=== PATIENT | male | born 1935 | race African-American/Black ===

== ENCOUNTER 2016-07-19 22:24 | Emergency (ER) | payer MEDICARE ==
[~2016-07-19] VITALS: Ht 175.3 cm; Wt 90.7 kg
[2016-07-19 22:32] VITALS: BP 128/49
[2016-07-19] MEDS ORDERED: ROBAXIN-750750 MG PO (22:36)
[2016-07-19] MEDS ORDERED: Cyclobenzaprine 10mg Tab ORAL ONE (22:45)
[2016-07-19] MEDS ORDERED: Ketorolac 60mg Inj IM ONE (22:45)
[2016-07-20 00:15] VITALS: BP 131/48
--- NOTE | 2016-07-20 03:32 | Emergency Room Report ---
History of Present Illness General Chief Complaint: Pain Source: Patient, EMS Present Illness HPI 81 YO M presents with chronic right sided lower back pain. States has been to 4 other ERs this week - had xrays "and other tests" that were negative. Has been taking naproxen with some improvement in pain. Denies urinary/bowel incontinence, lower extremity weakness, fever/chills. Has had lower back pain "for years." Denies any recent trauma. Allergies: Coded Allergies: PENICILLINS (Verified Allergy, Unknown, 07/19/16) Patient History Past Medical History: other - Chronic sciatica Past Surgical History: none Pertinent Family History: none Social History: Denies: alcohol use, drug use, smoking Immunizations: UTD Reviewed Nursing Documentation: PMH: Agreed, PSxH: Agreed Nursing Documentation-PMH Hx Hypertension: Yes Review of Systems All Other Systems: negative except mentioned in HPI Physical Exam Vital Signs Date Time Temp Pulse Resp B/P Pulse Ox O2 Delivery O2 Flow Rate FiO2 07/19/16 22:20 98.2 82 17 103/61 100 Room Air Sp02 EP Interpretation: reviewed, normal General Appearance: normal inspection, well appearing, no apparent distress, alert, GCS 15, non-toxic Head: normocephalic, atraumatic Eyes: bilateral eye EOMI, bilateral eye PERRL ENT: normal ENT inspection, hearing grossly normal, normal voice Neck: normal inspection, full range of motion, supple, no bony tend Respiratory: normal inspection, lungs clear, normal breath sounds, no respiratory distress, no retraction, no wheezing Cardiovascular #1: regular rate, rhythm, no edema Gastrointestinal: normal inspection, normal bowel sounds, non tender, soft, no guarding, no hernia Genitourinary: no CVA tenderness Musculoskeletal: normal inspection, back normal, normal range of motion, Rossy' s Sign negative, other - + right sided SL raise test Neurologic: normal inspection, alert, oriented x3, responsive, head of physics III-XII nml as tested, motor strength/tone normal, cerebellar normal, normal gait, speech normal Psychiatric: normal inspection, judgement/insight normal, memory normal, mood/ affect normal, no suicidal/homicidal ideation, no delusions Skin: normal inspection, normal color, no rash Medical Decision Making Diagnostic Impression: Primary Impression: Sciatica of right side ER Course 81 YO M with chronic sciatica type pain. Atraumatic. VSS. Afebrile. No urinary complaints. No focal neuro deficits. Low concern for acute cord compression. Positive right sided straight leg test Rx Robaxin to take with his naproxen Also advised PMD followup DC home Last Vital Signs Date Time Temp Pulse Resp B/P Pulse Ox O2 Delivery O2 Flow Rate FiO2 07/20/16 00:15 98.1 59 18 131/48 98 Room Air Status: improved Disposition: HOME, SELF-CARE Condition: Improved Scripts Methocarbamol* (ROBAXIN-750*) 750 Mg Tablet 750 MG PO TID, #30 TAB 0 Refills Prov: GERARDO ZHANG M.D. 07/19/16 Referrals: NOT CHOSEN IPA/,REFERRING (PCP) Patient Instructions: Sciatica, [id number] Additional Instructions: - Take Robaxin with the naproxen you already have at home - Follow up with the doctor who did the previous surgery on your lower back GERARDO ZHANG M.D. Jul 20, 2016 03:32
== END 2016-07-20 00:15 | disposition home or self-care (01) ==
LOC: EDBD 22:24 → EMR 22:37
DX: M54.31 Sciatica, right side (principal); M54.5 Low back pain; Z88.0 Allergy status to penicillin
CPT/HCPCS: 96372; 99283

== ENCOUNTER 2016-09-13 20:31 | Inpatient (IN) | payer MEDICARE, OTHER ==
[~2016-09-13] VITALS: Ht 175.3 cm; Wt 98.9 kg
[~2016-09-13 20:31] MED LIST: ROBAXIN-750750 MG PO
[2016-09-14] MEDS ORDERED: SULINDAC150 MG PO (01:18)
[2016-09-14] MEDS ORDERED: GABAPENTIN300 MG ORAL (01:18)
[2016-09-14] MEDS ORDERED: LISINOPRIL5 MG ORAL (01:18)
[2016-09-14 04:00] VITALS: BP 107/44
[2016-09-14] MEDS: D5 1/2NS 1,000 ML IV SCH ×2 (04:30→13:22)
[2016-09-14 08:59] VITALS: BP 108/52
[2016-09-14 11:31] LABS: BASOPHILS % (AUTO) 0.6 % (0.0-2.0); EOSINOPHILS % (AUTO) 0.3 % (0.0-3.0); LYMPHOCYTES % (AUTO) 14.9 % (20.0-45.0); MEAN CORPUSCULAR HEMOGLOBIN 27.6 PG (27.0-31.0); MEAN CORPUSCULAR HGB CONC 31.3 G/DL (32.0-36.0); MEAN CORPUSCULAR VOLUME 88 FL (80-99); MEAN PLATELET VOLUME 5.8 FL (6.5-10.1); MONOCYTES % (AUTO) 6.4 % (1.0-10.0); NEUTROPHILS % (AUTO) 77.7 % (45.0-75.0); PLATELET COUNT 445 K/UL (150-450); RED BLOOD COUNT 3.94 M/UL (4.70-6.10); WHITE BLOOD COUNT 9.7 K/UL (4.8-10.8)
[2016-09-14 11:46] LABS: ALANINE AMINOTRANSFERASE 15 U/L (3-41); ALBUMIN/GLOBULIN RATIO 0.9 (1.0-2.7); ANION GAP 19 (5-15); ASPARTATE AMINO TRANSFERASE 26 U/L (5-40); CALCIUM 7.9 mg/dL (8.6-10.2); CARBON DIOXIDE 24 mEQ/L (20-30); CHLORIDE 100 mEQ/L (98-107); CREATININE 2.6 mg/dL (0.7-1.2); HEMOLYSIS 3; MAGNESIUM 2.1 mg/dL (1.7-2.5); PHOSPHORUS 4.5 mg/dL (2.5-4.8); POTASSIUM 3.1 mEQ/L (3.4-4.9); SODIUM 143 mEQ/L (135-145)
[2016-09-14 11:58] LABS: TROPONIN I < 0.30 ng/mL (<=0.30)
[2016-09-14 12:58] VITALS: BP 80/49
[2016-09-14] MEDS: Heparin 5000 units/ml inj SUBQ SCH ×2 (13:30→21:23)
--- NOTE | 2016-09-14 14:13 | Diagnostic Imaging Report ---
Indication: Chest Pain Comparison: None A single view chest radiograph was obtained. Findings: No definite infiltrate or pulmonary vascular congestion identified. The heart is enlarged. The aorta is mildly enlarged consistent with atherosclerotic vascular disease. The bones are osteopenic. Impression: No acute disease
[2016-09-14 14:22] VITALS: BP 107/42
--- NOTE | 2016-09-14 15:37 | Diagnostic Imaging Report ---
Indication:Elevated Bun and Creatinine. Technique: Grayscale and duplex Doppler imaging of the kidneys performed. Comparison: None Findings: Urinary bladder is moderately distended. Volume is about 428 cc. There are multiple calcifications in the right kidney likely small nonobstructive stones. There are multiple cysts present within both kidneys. These are of varying size. Both kidneys measure between 11 and 12 cm in length. Impression: Distended urinary bladder. Suspected nonobstructive stones in the right kidney. Multiple small bilateral renal cysts
--- NOTE | 2016-09-14 16:43 | Cardiac Electrophysiology PN ---
Subjective Subjective [id number] Objective Last 24 Hour Vital Signs Date Time Temp Pulse Resp B/P Pulse Ox O2 Delivery O2 Flow Rate FiO2 09/14/16 14:22 65 107/42 09/14/16 12:58 98.0 60 19 80/49 97 Room Air 09/14/16 08:59 98.0 71 19 108/52 98 Room Air 09/14/16 04:00 98.2 71 19 107/44 95 Room Air Intake and Output 09/13/16 09/14/16 19:00 07:00 Intake Total 300 ml Balance 300 ml IV Total 300 ml # Voids 2 # Bowel Movements 3 Laboratory Tests Test 09/14/16 11:10 White Blood Count 9.7 K/UL (4.8-10.8) Red Blood Count 3.94 M/UL (4.70-6.10) L Hemoglobin 10.9 G/DL (14.2-18.0) L Hematocrit 34.7 % (42.0-52.0) L Mean Corpuscular Volume 88 FL (80-99) Mean Corpuscular Hemoglobin 27.6 PG (27.0-31.0) Mean Corpuscular Hemoglobin Concent 31.3 G/DL (32.0-36.0) L Red Cell Distribution Width 14.0 % (11.6-14.8) Platelet Count 445 K/UL (150-450) Mean Platelet Volume 5.8 FL (6.5-10.1) L Neutrophils (%) (Auto) 77.7 % (45.0-75.0) H Lymphocytes (%) (Auto) 14.9 % (20.0-45.0) L Monocytes (%) (Auto) 6.4 % (1.0-10.0) Eosinophils (%) (Auto) 0.3 % (0.0-3.0) Basophils (%) (Auto) 0.6 % (0.0-2.0) Sodium Level 143 mEQ/L (135-145) Potassium Level 3.1 mEQ/L (3.4-4.9) L Chloride Level 100 mEQ/L (98-107) Carbon Dioxide Level 24 mEQ/L (20-30) Anion Gap 19 (5-15) H Blood Urea Nitrogen 46 mg/dL (7-23) H Creatinine 2.6 mg/dL (0.7-1.2) H Estimat Glomerular Filtration Rate mL/min (>60) Glucose Level 92 mg/dL (74-106) Calcium Level 7.9 mg/dL (8.6-10.2) L Phosphorus Level 4.5 mg/dL (2.5-4.8) Magnesium Level 2.1 mg/dL (1.7-2.5) Total Bilirubin < 0.2 mg/dL (0.0-1.2) Aspartate Amino Transf (AST/SGOT) 26 U/L (5-40) Alanine Aminotransferase (ALT/SGPT) 15 U/L (3-41) Alkaline Phosphatase 56 U/L (40-129) Total Creatine Kinase 344 U/L (38-174) H Troponin I < 0.30 ng/mL (<=0.30) Pro-B-Type Natriuretic Peptide 1622 pg/mL (0-450) H Total Protein 6.0 g/dL (6.6-8.7) L Albumin 2.9 g/dL (3.5-5.2) L Globulin 3.1 g/dL Albumin/Globulin Ratio 0.9 (1.0-2.7) L ANNA KOEHLER Sep 14, 2016 16:43
--- NOTE | 2016-09-14 17:26 | Consultation ---
History of Present Illness General Date patient seen: Sep 14, 2016 Chief Complaint: ALOC Referring physician: Dr. Gar Reason for Consultation: Inpatient management Present Illness HPI 81 year old male with hx of HTN, apparently fell from his wheelchair and was unable to get up. He was taken to [facility]. After initial evaluation he was transferred to [facility] for further management. Pt is currently awake, alert and oriented without any complains. He was diagnosed to have acute dvt of right femoral artery. Allergies: Coded Allergies: PENICILLINS (Verified Allergy, Unknown, 07/19/16) Medication History Scheduled Lisinopril (Lisinopril*), 5 MG ORAL DAILY, (Reported) Sulindac (Sulindac), 150 MG PO THREE TIMES A DAY, (Reported) Scheduled PRN Gabapentin* (Gabapentin*), 300 MG ORAL THREE TIMES A DAY PRN for For Pain, ( Reported) Discontinued Medications Methocarbamol* (Robaxin-750*), 750 MG PO TID Discontinued Reason: Therapy completed Patient History Healthcare decision maker izzy Olson Resuscitation status Advanced Directive on File Physical Exam General Appearance: WD/WN Lines, tubes and drains: peripheral, central line HEENT: normocephalic, atraumatic Neck: non-tender, normal alignment Respiratory/Chest: chest wall non-tender, lungs clear Cardiovascular/Chest: normal peripheral pulses, normal rate Last 24 Hour Vital Signs Date Time Temp Pulse Resp B/P Pulse Ox O2 Delivery O2 Flow Rate FiO2 09/14/16 14:22 65 107/42 09/14/16 12:58 98.0 60 19 80/49 97 Room Air 09/14/16 08:59 98.0 71 19 108/52 98 Room Air 09/14/16 04:00 98.2 71 19 107/44 95 Room Air Intake and Output 09/13/16 09/14/16 19:00 07:00 Intake Total 300 ml Balance 300 ml IV Total 300 ml # Voids 2 # Bowel Movements 3 Laboratory Tests Test 09/14/16 11:10 White Blood Count 9.7 K/UL (4.8-10.8) Red Blood Count 3.94 M/UL (4.70-6.10) L Hemoglobin 10.9 G/DL (14.2-18.0) L Hematocrit 34.7 % (42.0-52.0) L Mean Corpuscular Volume 88 FL (80-99) Mean Corpuscular Hemoglobin 27.6 PG (27.0-31.0) Mean Corpuscular Hemoglobin Concent 31.3 G/DL (32.0-36.0) L Red Cell Distribution Width 14.0 % (11.6-14.8) Platelet Count 445 K/UL (150-450) Mean Platelet Volume 5.8 FL (6.5-10.1) L Neutrophils (%) (Auto) 77.7 % (45.0-75.0) H Lymphocytes (%) (Auto) 14.9 % (20.0-45.0) L Monocytes (%) (Auto) 6.4 % (1.0-10.0) Eosinophils (%) (Auto) 0.3 % (0.0-3.0) Basophils (%) (Auto) 0.6 % (0.0-2.0) Sodium Level 143 mEQ/L (135-145) Potassium Level 3.1 mEQ/L (3.4-4.9) L Chloride Level 100 mEQ/L (98-107) Carbon Dioxide Level 24 mEQ/L (20-30) Anion Gap 19 (5-15) H Blood Urea Nitrogen 46 mg/dL (7-23) H Creatinine 2.6 mg/dL (0.7-1.2) H Estimat Glomerular Filtration Rate mL/min (>60) Glucose Level 92 mg/dL (74-106) Calcium Level 7.9 mg/dL (8.6-10.2) L Phosphorus Level 4.5 mg/dL (2.5-4.8) Magnesium Level 2.1 mg/dL (1.7-2.5) Total Bilirubin < 0.2 mg/dL (0.0-1.2) Aspartate Amino Transf (AST/SGOT) 26 U/L (5-40) Alanine Aminotransferase (ALT/SGPT) 15 U/L (3-41) Alkaline Phosphatase 56 U/L (40-129) Total Creatine Kinase 344 U/L (38-174) H Troponin I < 0.30 ng/mL (<=0.30) Pro-B-Type Natriuretic Peptide 1622 pg/mL (0-450) H Total Protein 6.0 g/dL (6.6-8.7) L Albumin 2.9 g/dL (3.5-5.2) L Globulin 3.1 g/dL Albumin/Globulin Ratio 0.9 (1.0-2.7) L Height (Feet): 5 Height (Inches): 9.00 Weight (Pounds): 218 Medications Current Medications Medications (Trade) Dose Ordered Sig/[place] Route PRN Reason Start Time Stop Time Status Last Admin Dose Admin Acetaminophen (Tylenol) 650 mg Q6HR PRN ORAL Mild Pain/Temp > 100.5 09/14/16 09:00 10/14/16 08:59 Dextrose/Sodium Chloride (D5 0.45% NS) 1,000 ml @ 100 mls/hr Q10H IV 09/14/16 04:30 10/14/16 04:29 09/14/16 13:22 Gabapentin (Neurontin) 300 mg THREE TIMES A DAY ORAL 09/14/16 09:00 10/14/16 08:59 09/14/16 12:28 Heparin Sodium (Porcine) (Heparin 5000 units/ml) 5,000 units EVERY 12 HOURS SUBQ 09/14/16 14:00 10/14/16 13:59 09/14/16 13:30 Assessment/Plan Problem List: (1) Renal failure ICD Codes: N19 - Unspecified kidney failure SNOMED: 14736706 (2) DVT (deep venous thrombosis) ICD Codes: I82.409 - Acute embolism and thrombosis of unspecified deep veins of unspecified lower extremity SNOMED: 375139868 (3) Hypokalemia ICD Codes: E87.6 - Hypokalemia SNOMED: 86130029 Assessment/Plan heparin IV/ coumadine renal work up echo pt/ot monitor bp check electrolytes. SONIYA GUPTA Sep 14, 2016 17:26
--- NOTE | 2016-09-14 19:04 | History & Physical ---
History and Physical History & Physicial Dictated for Int Med-Dr Naqvi no. [id number]. LARA EDWARDS Sep 14, 2016 19:04
[2016-09-14 19:05] LABS: INR 1.4 (0.9-1.1); PROTHROMBIN TIME 14.1 SEC (9.30-11.50)
[2016-09-14 19:12] LABS: ALANINE AMINOTRANSFERASE 15 U/L (3-41); ALBUMIN/GLOBULIN RATIO 0.9 (1.0-2.7); ANION GAP 16 (5-15); ASPARTATE AMINO TRANSFERASE 25 U/L (5-40); CARBON DIOXIDE 25 mEQ/L (20-30); CHLORIDE 99 mEQ/L (98-107); CREATININE 2.5 mg/dL (0.7-1.2); LACTATE DEHYDROGENASE 323 U/L (135-230); POTASSIUM 3.8 mEQ/L (3.4-4.9); SODIUM 140 mEQ/L (135-145); TOTAL PROTEIN 5.5 g/dL (6.6-8.7); URIC ACID 13.4 mg/dL (3.0-7.5)
[2016-09-14 19:18] LABS: FREE T3 1.7 pg/mL (2.3-4.2)
[2016-09-14 19:38] LABS: HEMOLYSIS 7; IRON 34 ug/dL (59-158); TOTAL IRON BINDING CAPACITY 134 ug/dL (250-400)
[2016-09-14 20:24] LABS: RETICULOCYTE COUNT 0.4 % (0.0-2.0)
[2016-09-14 21:50] LABS: BASOPHILS % (MANUAL) 1 % (0-2); LYMPHOCYTES % (MANUAL) 19 % (20-45); NEUTROPHILS % (MANUAL) 74 % (45-75); TOTAL CELLS COUNTED 100
[2016-09-14 21:51] LABS: ANISOCYTOSIS 1+; BAND NEUTROPHILS % (MANUAL) 0 % (0-8); EOSINOPHILS % (MANUAL) 0 % (0-3); PLATELET ESTIMATE ADEQUATE
[2016-09-14 21:52] LABS: PATH BLOOD SMEAR/OMC SENT TO PATHOLOGIST; PLATELET MORPHOLOGY NORMAL; POLYCHROMASIA 1+
--- NOTE | 2016-09-14 22:20 | Consultation ---
DATE OF CONSULTATION: 09/14/2016 CARDIOLOGY CONSULTATION: REFERRING PHYSICIAN: Esa Naqvi M.D. REASON FOR CONSULTATION: Hypertension and syncope. HISTORY OF PRESENT ILLNESS: The patient is an 81-year-old ____ who was brought to the emergency room for generalized weakness after a fall. The patient apparently fell in the bedroom around 11 o'clock last night, but not sure whether he lost consciousness or not. Whatever he hit his head against the wall. The patient lives alone. The patient was brought to the emergency room at [facility] when the blood pressure was 101/46 and pulse was 60. The patient was found to be in acute renal failure. He was then transferred to [facility] for hydration and resolution of acute renal failure. PAST MEDICAL HISTORY: Hypertension. SOCIAL HISTORY: He lives alone at home. Does not smoke or drink alcohol. FAMILY HISTORY: Noncontributory. REVIEW OF SYSTEMS: Negative other than what is mentioned in history of present illness. PHYSICAL EXAMINATION: VITAL SIGNS: Blood pressure is 107/42 initially was 80/49, pulse 65, respirations 18, and temperature 98 degrees. NECK: Shows no JVD. LUNGS: Clear. CARDIOVASCULAR: Shows regular S1 and S2 with no gallop or murmur. ABDOMEN: Soft. EXTREMITIES: A 1+ pitting edema. LABORATORY DATA: White count of 9.7, hemoglobin 10.9, hematocrit 34.7, and platelet count is 445,000. Sodium 142, potassium 3.1, BUN 42, creatinine 2.0, and glucose of 92. Troponins negative. BNP 6022. CK 344. ASSESSMENT AND PLAN: 1. Status post fall versus syncope. The first troponin is negative. We will completely rule out myocardial infarction protocol. We will get an echocardiogram to evaluate for ejection fraction and wall motion abnormality. EKG will also be obtained. 2. Acute renal failure. Continue dehydration. The patient is dehydrated. 3. Elevated CPK due to fall. The patient's creatinine was 4.13 at [place], is improving. 4. Hypokalemia, which is already replaced. Thank very much, Dr. Naqiv, for allowing me to participate in the care of this patient. Please do not hesitate to contact for any questions regarding my evaluation. Ishan Goode M.D. DR: Roque JOB#: [id number] CC:
[2016-09-14] MEDS ORDERED: Heparin 25,000u/D5W 500ml 500 ML IV SCH (23:00)
--- NOTE | 2016-09-14 23:30 | History and Physical Report ---
DATE OF ADMISSION: 09/13/2016 CHIEF COMPLAINT: The patient is an 81-year-old male presents with complaint of generalized weakness and fall injury. HISTORY OF PRESENT ILLNESS: The patient lives alone. According to the patient's daughter, the patient fell from his wheelchair last evening. The patient was found earlier this morning. The patient presented to [facility] emergency room. The patient was found to have renal failure. The patient is transferred to [facility] secondary to insurance purposes. The patient was admitted for generalized weakness and acute renal failure. REVIEW OF SYSTEMS: Constitutional: The patient denies weight loss or weight gain. The patient denies fevers or chills. Heent: The patient denies ear or throat pain. Cardiovascular: The patient denies palpitations or chest pain. Chest: The patient denies wheeze or shortness of breath. Abdominal: The patient denies nausea, vomiting, diarrhea, or constipation. Genitourinary: The patient denies dysuria or increased frequency of urination. Neuromuscular: The patient complaints of generalized weakness as above. The patient denies seizures. PAST MEDICAL HISTORY: Significant for: 1. Hypertension. 2. Peripheral neuropathy. PAST SURGICAL HISTORY: The patient denies. CURRENT MEDICATIONS: 1. Lisinopril 5 mg one tablet p.o. daily. 2. Gabapentin 300 mg one tablet p.o. three times daily. 3. Sulindac 150 mg one tablet p.o. three times daily. ALLERGIES: Penicillin. SOCIAL HISTORY: The patient lives alone. The patient is . The patient has two adult children. The patient denies tobacco or alcohol use. PHYSICAL EXAMINATION: VITAL SIGNS: Temperature 98.2, respirations 19, pulse 71, and blood pressure 107/44. GENERAL: The patient is well-developed and well-nourished male, in no apparent distress. HEENT: Eyes, pupils are equal and responsive to light and accommodation. Extraocular movements are intact. NECK: Supple without lymphadenopathy. CHEST: Lungs are clear to auscultation bilaterally without wheezes or rales. CARDIOVASCULAR: Regular rhythm and rate. S1 and S2 are normal without murmurs, rubs, or gallops. ABDOMEN: Soft, nontender, and nondistended. Positive bowel sounds. No hepatosplenomegaly. Currently, no rebound or guarding. EXTREMITIES: Negative for clubbing, cyanosis, or edema. RECTAL/GENITAL: Refused. NEUROLOGICAL: Cranial nerves II through XII are grossly intact without focal deficits. Motor strength is 5/5 bilaterally. Deep tendon reflexes are 2+ plantar. LABORATORY AND DIAGNOSTIC STUDIES: WBC 9.7, hemoglobin 10.9, hematocrit 34.7, and platelets 445,000. Sodium 143, potassium decreased to 3.1, chloride 100, CO2 24, BUN elevated to 46, creatinine elevated to 2.6, and glucose 92. BNP elevated at 1622. Troponin negative less than 0.3. A chest x-ray revealed no acute disease. The renal ultrasound is pending. ASSESSMENT: This is an 81-year-old male with: 1. Generalized weakness. 2. Fall injury. 3. Renal failure. 4. Hypertension. 5. Peripheral neuropathy. 6. Hypokalemia. TREATMENT: 1. Generalized weakness. A physical therapy consultation has been obtained. Generalized weakness may be secondary to renal failure. We will follow recommendation of physical therapy. 2. Hypertension. Continue lisinopril as above. 3. Peripheral neuropathy. Continue gabapentin as above. 4. Hypokalemia. The patient is currently receiving potassium supplementation. 5. Renal failure. Nephrology consultation is pending. A renal ultrasound is pending. Amarjit Gar M.D. DR: DAFNE JOB#: [id number] CC:
[2016-09-14 23:51] LABS: BASOPHILS % (AUTO) 0.8 % (0.0-2.0); EOSINOPHILS % (AUTO) 0.3 % (0.0-3.0); LYMPHOCYTES % (AUTO) 14.7 % (20.0-45.0); MEAN CORPUSCULAR HGB CONC 31.4 G/DL (32.0-36.0); MEAN CORPUSCULAR VOLUME 89 FL (80-99); MEAN PLATELET VOLUME 5.6 FL (6.5-10.1); NEUTROPHILS % (AUTO) 75.2 % (45.0-75.0); PLATELET COUNT 343 K/UL (150-450); RED BLOOD COUNT 3.35 M/UL (4.70-6.10); WHITE BLOOD COUNT 12.4 K/UL (4.8-10.8)
[2016-09-15] VITALS: BP 93/36
[2016-09-15] MEDS: D5 1/2NS 1,000 ML IV SCH ×3 (00:30→21:34)
[2016-09-15 04:00] VITALS: BP 104/45
[2016-09-15 07:42] LABS: BASOPHILS % (AUTO) 0.4 % (0.0-2.0); EOSINOPHILS % (AUTO) 0.7 % (0.0-3.0); LYMPHOCYTES % (AUTO) 16.7 % (20.0-45.0); MEAN CORPUSCULAR HEMOGLOBIN 28.1 PG (27.0-31.0); MEAN CORPUSCULAR HGB CONC 32.2 G/DL (32.0-36.0); MEAN CORPUSCULAR VOLUME 87 FL (80-99); MONOCYTES % (AUTO) 9.1 % (1.0-10.0); NEUTROPHILS % (AUTO) 73.1 % (45.0-75.0); PLATELET COUNT 462 K/UL (150-450); RED BLOOD COUNT 3.84 M/UL (4.70-6.10); RED CELL DISTRIBUTION WIDTH 14.3 % (11.6-14.8); WHITE BLOOD COUNT 13.8 K/UL (4.8-10.8)
[2016-09-15 07:51] LABS: ANION GAP 17 (5-15); CALCIUM 8.1 mg/dL (8.6-10.2); CARBON DIOXIDE 24 mEQ/L (20-30); CHLORIDE 101 mEQ/L (98-107); CREATININE 2.1 mg/dL (0.7-1.2); HEMOLYSIS 2; MAGNESIUM 1.9 mg/dL (1.7-2.5); PHOSPHORUS 3.2 mg/dL (2.5-4.8); POTASSIUM 3.9 mEQ/L (3.4-4.9); SODIUM 142 mEQ/L (135-145)
[2016-09-15 07:52] LABS: TROPONIN I < 0.30 ng/mL (<=0.30)
[2016-09-15 08:08] LABS: CORTISOL LC 18.9 ug/dL (.)
[2016-09-15 08:18] LABS: INR 1.3 (0.9-1.1); PROTHROMBIN TIME 13.5 SEC (9.30-11.50)
[2016-09-15 08:23] LABS: PARTIAL THROMBOPLASTIN TIME > 150 SEC (23-33)
[2016-09-15 08:35] VITALS: BP 94/59
[2016-09-15] MEDS ORDERED: Heparin 25,000u/D5W 500ml 500 ML IV SCH ×2 (09:30)
[2016-09-15] MEDS: Heparin 25,000u/D5W 500ml 500 ML IV SCH ×2 (11:18→18:07)
[2016-09-15 11:34] VITALS: BP 124/50
--- NOTE | 2016-09-15 12:11 | General Progress Note ---
Progress Note Progress Note [id number] full note dictated TATUM ROBERTS Sep 15, 2016 12:11
--- NOTE | 2016-09-15 13:00 | Cardiology Report ---
APPROVED REPORT EXAM: Two-dimensional and M-mode echocardiogram with Doppler and color Doppler. INDICATION Left Ventricular Function M-Mode DIMENSIONS IVSd1.5 (0.7-1.1cm)Left Atrium (MM)3.3 (1.6-4.0cm) LVDd5.5 (3.5-5.6cm)Aortic Root3.2 (2.0-3.7cm) PWd1.0 (0.7-1.1cm)Aortic Cusp Exc.1.5 (1.5-2.0cm) LVDs4.6 (2.5-4.0cm) PWs1.1 cm Technically difficult and limited study due to poor apical windows. Apical views obtained from subcostal. Study quality precludes accurate assessment of regional wall motion. Normal left ventricular chamber size, systolic function and wall motion to extent visualized. Left ventricular ejection fraction estimated to be 60 %. Mild left ventricular hypertrophy. No evidence of pericardial fat or effusion. All other cardiac chamber sizes are within normal limits. Mild focal aortic valve sclerosis with adequate cusp excursion. Mildly thickened mitral valve leaflets with normal excursion. Mild mitral annulus and aortic root calcification. Pulmonic valve not well visualized. Normal tricuspid valve structure. IVC at normal size with physiologic collapse. A color flow and spectral Doppler study was performed and revealed: No aortic regurgitation. Mild mitral regurgitation. Mitral diastolic velocities suggest reduced left ventricular relaxation (Grade I). Mild tricuspid regurgitation. Tricuspid systolic velocities suggests peak right ventricular systolic pressure of 24 mmHg. No pulmonic regurgitation present.
--- NOTE | 2016-09-15 13:41 | Cardiology Report ---
APPROVED REPORT EKG Measurement Heart [id number] [place] [id number] Normal sinus rhythm Normal ECG
--- NOTE | 2016-09-15 14:47 | Cardiac Electrophysiology PN ---
Assessment/Plan Status Narrative Technically difficult and limited study due to poor apical windows. Apical views obtained from subcostal. Study quality precludes accurate assessment of regional wall motion. Normal left ventricular chamber size, systolic function and wall motion to extent visualized. Left ventricular ejection fraction estimated to be 60 %. Mild left ventricular hypertrophy. No evidence of pericardial fat or effusion. All other cardiac chamber sizes are within normal limits. Mild focal aortic valve sclerosis with adequate cusp excursion. Mildly thickened mitral valve leaflets with normal excursion. Mild mitral annulus and aortic root calcification. Pulmonic valve not well visualized. Normal tricuspid valve structure. IVC at normal size with physiologic collapse. A color flow and spectral Doppler study was performed and revealed: No aortic regurgitation. Mild mitral regurgitation. Mitral diastolic velocities suggest reduced left ventricular relaxation (Grade I ). Mild tricuspid regurgitation. Tricuspid systolic velocities suggests peak right ventricular systolic pressure of 24 mmHg. No pulmonic regurgitation present. Assessment/Plan 1. Status post fall versus syncope. The first troponin is negative. Ruled out for myocardial infarction. Echocardiogram showed Nl EF. Likely due to dehydration. 2. Acute renal failure. Continue dehydration. Better now.The patient's creatinine was 4.13 at [place], is improving. 3. Elevated CPK due to fall. 4. Hypokalemia, which is already replaced. BURTON RN Subjective Subjective More alert. Transferred to telemetry. No chest pain or SOB Objective Last 24 Hour Vital Signs Date Time Temp Pulse Resp B/P Pulse Ox O2 Delivery O2 Flow Rate FiO2 09/15/16 12:00 71 09/15/16 11:34 97.7 68 20 124/50 98 Room Air 09/15/16 08:35 97.7 70 20 94/59 100 Nasal Cannula 2.0 09/15/16 04:00 96.4 67 20 104/45 99 Room Air 09/15/16 00:00 96.4 67 20 93/36 97 Room Air Intake and Output 09/14/16 09/15/16 19:00 07:00 Intake Total 940 ml 311.196 ml Output Total 450 ml Balance 940 ml -138.804 ml Intake Oral 240 ml 240 ml IV Total 700 ml 71.196 ml Output Urine Total 450 ml # Voids 1 4 Laboratory Tests Test 09/14/16 18:15 09/14/16 23:30 09/15/16 07:15 Erythrocyte Sedimentation Rate 47 MM/HR (0-20) H Reticulocyte Count 0.4 % (0.0-2.0) Prothrombin Time 14.1 SEC (9.30-11.50) H 13.5 SEC (9.30-11.50) H Prothromb Time International Ratio 1.4 (0.9-1.1) H 1.3 (0.9-1.1) H Activated Partial Thromboplast Time 30 SEC (23-33) 30 SEC (23-33) > 150 SEC (23-33) *H Urine Color Pending Urine Appearance Pending Urine pH Pending Urine Specific [place] Pending Urine Protein Pending Urine Glucose (UA) Pending Urine Ketones Pending Urine Occult Blood Pending Urine Nitrite Pending Urine Bilirubin Pending Urine Urobilinogen Pending Urine Leukocyte Esterase Pending Urine RBC Pending Urine WBC Pending Urine Squamous Epithelial Cells Pending Urine Bacteria Pending Urine Eosinophils Pending Sodium Level 140 mEQ/L (135-145) 142 mEQ/L (135-145) Potassium Level 3.8 mEQ/L (3.4-4.9) 3.9 mEQ/L (3.4-4.9) Chloride Level 99 mEQ/L (98-107) 101 mEQ/L (98-107) Carbon Dioxide Level 25 mEQ/L (20-30) 24 mEQ/L (20-30) Anion Gap 16 (5-15) H 17 (5-15) H Blood Urea Nitrogen 44 mg/dL (7-23) H 35 mg/dL (7-23) H Creatinine 2.5 mg/dL (0.7-1.2) H 2.1 mg/dL (0.7-1.2) H Estimat Glomerular Filtration Rate mL/min (>60) mL/min (>60) Glucose Level 137 mg/dL (74-106) H 112 mg/dL (74-106) H Plasma/Serum Osmolality Pending Uric Acid 13.4 mg/dL (3.0-7.5) H Calcium Level 8.0 mg/dL (8.6-10.2) L 8.1 mg/dL (8.6-10.2) L Iron Level 34 ug/dL (59-158) L Total Iron Binding Capacity 134 ug/dL (250-400) L Percent Iron Saturation 25 % (15-50) Unsaturated Iron Binding 100 ug/dL (112-346) L Total Bilirubin < 0.2 mg/dL (0.0-1.2) Aspartate Amino Transf (AST/SGOT) 25 U/L (5-40) Alanine Aminotransferase (ALT/SGPT) 15 U/L (3-41) Alkaline Phosphatase 58 U/L (40-129) Lactate Dehydrogenase 323 U/L (135-230) H Total Creatine Kinase 286 U/L (38-174) H Total Protein 5.5 g/dL (6.6-8.7) L Albumin 2.7 g/dL (3.5-5.2) L Globulin 2.8 g/dL Albumin/Globulin Ratio 0.9 (1.0-2.7) L Carcinoembryonic Antigen 2.7 ng/mL Vitamin B12 Level 824 pg/mL (211-946) Folate 3.0 ng/mL (>3.0) L Thyroid Stimulating Hormone (TSH) 1.320 uIU/mL (0.300-4.500) 3.420 uIU/mL (0.300-4.500) Free Triiodothyronine 1.7 pg/mL (2.3-4.2) L Cortisol 18.9 ug/dL (.) White Blood Count 12.4 K/UL (4.8-10.8) H 13.8 K/UL (4.8-10.8) H Red Blood Count 3.35 M/UL (4.70-6.10) L 3.84 M/UL (4.70-6.10) L Hemoglobin 9.4 G/DL (14.2-18.0) L 10.8 G/DL (14.2-18.0) L Hematocrit 29.8 % (42.0-52.0) L 33.5 % (42.0-52.0) L Mean Corpuscular Volume 89 FL (80-99) 87 FL (80-99) Mean Corpuscular Hemoglobin 28.0 PG (27.0-31.0) 28.1 PG (27.0-31.0) Mean Corpuscular Hemoglobin Concent 31.4 G/DL (32.0-36.0) L 32.2 G/DL (32.0-36.0) Red Cell Distribution Width 14.0 % (11.6-14.8) 14.3 % (11.6-14.8) Platelet Count 343 K/UL (150-450) 462 K/UL (150-450) H Mean Platelet Volume 5.6 FL (6.5-10.1) L 6.0 FL (6.5-10.1) L Neutrophils (%) (Auto) 75.2 % (45.0-75.0) H 73.1 % (45.0-75.0) Lymphocytes (%) (Auto) 14.7 % (20.0-45.0) L 16.7 % (20.0-45.0) L Monocytes (%) (Auto) 9.0 % (1.0-10.0) 9.1 % (1.0-10.0) Eosinophils (%) (Auto) 0.3 % (0.0-3.0) 0.7 % (0.0-3.0) Basophils (%) (Auto) 0.8 % (0.0-2.0) 0.4 % (0.0-2.0) Phosphorus Level 3.2 mg/dL (2.5-4.8) Magnesium Level 1.9 mg/dL (1.7-2.5) Troponin I < 0.30 ng/mL (<=0.30) Pro-B-Type Natriuretic Peptide 1772 pg/mL (0-450) H Free Thyroxine 0.99 ng/dL (0.86-1.85) Objective NECK: Shows no JVD. LUNGS: Clear. CARDIOVASCULAR: Shows regular S1 and S2 with no gallop or murmur. ABDOMEN: Soft. EXTREMITIES: A 1+ pitting edema. ANNA KOEHLER Sep 15, 2016 14:47
--- NOTE | 2016-09-15 15:01 | Pulmonology Progress Note ---
Assessment/Plan Problems: (1) Renal failure (2) DVT (deep venous thrombosis) (3) Acute encephalopathy Assessment/Plan continue heparin pt/ot renal w/u in progress bun/ creatinine decreasing Subjective ROS Limited/Unobtainable: No Interval Events: no new complains Allergies: Coded Allergies: PENICILLINS (Verified Allergy, Unknown, 07/19/16) Objective Last 24 Hour Vital Signs Date Time Temp Pulse Resp B/P Pulse Ox O2 Delivery O2 Flow Rate FiO2 09/15/16 12:00 71 09/15/16 11:34 97.7 68 20 124/50 98 Room Air 09/15/16 08:35 97.7 70 20 94/59 100 Nasal Cannula 2.0 09/15/16 04:00 96.4 67 20 104/45 99 Room Air 09/15/16 00:00 96.4 67 20 93/36 97 Room Air Intake and Output 09/14/16 09/15/16 19:00 07:00 Intake Total 940 ml 311.196 ml Output Total 450 ml Balance 940 ml -138.804 ml Intake Oral 240 ml 240 ml IV Total 700 ml 71.196 ml Output Urine Total 450 ml # Voids 1 4 General Appearance: WD/WN HEENT: normocephalic, atraumatic Respiratory/Chest: chest wall non-tender, lungs clear Cardiovascular: normal peripheral pulses, normal rate Abdomen: normal bowel sounds, soft, non tender, no scars Extremities: other - edema Laboratory Tests 09/14/16 18:15: Erythrocyte Sedimentation Rate 47H, Reticulocyte Count 0.4, Prothrombin Time 14.1H, Prothromb Time International Ratio 1.4H, Activated Partial Thromboplast Time 30, Urine Color [Pending], Urine Appearance [Pending], Urine pH [Pending], Urine Specific [place] [Pending], Urine Protein [Pending], Urine Glucose (UA) [ Pending], Urine Ketones [Pending], Urine Occult Blood [Pending], Urine Nitrite [ Pending], Urine Bilirubin [Pending], Urine Urobilinogen [Pending], Urine Leukocyte Esterase [Pending], Urine RBC [Pending], Urine WBC [Pending], Urine Squamous Epithelial Cells [Pending], Urine Bacteria [Pending], Urine Eosinophils [Pending], Sodium Level 140, Potassium Level 3.8, Chloride Level 99 , Carbon Dioxide Level 25, Anion Gap 16H, Blood Urea Nitrogen 44H, Creatinine 2.5H, Estimat Glomerular Filtration Rate , Glucose Level 137H, Plasma/Serum Osmolality [Pending], Uric Acid 13.4H, Calcium Level 8.0L, Iron Level 34L, Total Iron Binding Capacity 134L, Percent Iron Saturation 25, Unsaturated Iron Binding 100L, Total Bilirubin < 0.2, Aspartate Amino Transf (AST/SGOT) 25, Alanine Aminotransferase (ALT/SGPT) 15, Alkaline Phosphatase 58, Lactate Dehydrogenase 323H, Total Creatine Kinase 286H, Total Protein 5.5L, Albumin 2.7L , Globulin 2.8, Albumin/Globulin Ratio 0.9L, Carcinoembryonic Antigen 2.7, Vitamin B12 Level 824, Folate 3.0L, Thyroid Stimulating Hormone (TSH) 1.320, Free Triiodothyronine 1.7L, Cortisol 18.9 09/14/16 23:30: Activated Partial Thromboplast Time 30, White Blood Count 12.4H, Red Blood Count 3.35L, Hemoglobin 9.4L, Hematocrit 29.8L, Mean Corpuscular Volume 89, Mean Corpuscular Hemoglobin 28.0, Mean Corpuscular Hemoglobin Concent 31.4L, Red Cell Distribution Width 14.0, Platelet Count 343, Mean Platelet Volume 5.6L , Neutrophils (%) (Auto) 75.2H, Lymphocytes (%) (Auto) 14.7L, Monocytes (%) ( Auto) 9.0, Eosinophils (%) (Auto) 0.3, Basophils (%) (Auto) 0.8 09/15/16 07:15: Prothrombin Time 13.5H, Prothromb Time International Ratio 1.3H, Activated Partial Thromboplast Time > 150*H, Sodium Level 142, Potassium Level 3.9, Chloride Level 101, Carbon Dioxide Level 24, Anion Gap 17H, Blood Urea Nitrogen 35H, Creatinine 2.1H, Estimat Glomerular Filtration Rate , Glucose Level 112H, Calcium Level 8.1L, Thyroid Stimulating Hormone (TSH) 3.420, White Blood Count 13.8H, Red Blood Count 3.84L, Hemoglobin 10.8L, Hematocrit 33.5L, Mean Corpuscular Volume 87, Mean Corpuscular Hemoglobin 28.1, Mean Corpuscular Hemoglobin Concent 32.2, Red Cell Distribution Width 14.3, Platelet Count 462H, Mean Platelet Volume 6.0L, Neutrophils (%) (Auto) 73.1, Lymphocytes (%) (Auto) 16.7L, Monocytes (%) (Auto) 9.1, Eosinophils (%) (Auto) 0.7, Basophils (%) (Auto ) 0.4, Phosphorus Level 3.2, Magnesium Level 1.9, Troponin I < 0.30, Pro-B-Type Natriuretic Peptide 1772H, Free Thyroxine 0.99 Current Medications Medications (Trade) Dose Ordered Sig/[place] Route PRN Reason Start Time Stop Time Status Last Admin Dose Admin Acetaminophen (Tylenol) 650 mg Q6HR PRN ORAL Mild Pain/Temp > 100.5 09/15/16 12:00 10/15/16 11:59 Dextrose/Sodium Chloride 1,000 ml @ 100 mls/hr Q10H IV 09/15/16 11:00 10/15/16 10:59 09/15/16 11:15 Gabapentin (Neurontin) 300 mg THREE TIMES A DAY ORAL 09/15/16 13:00 10/15/16 12:59 09/15/16 12:26 Heparin Sodium/ Dextrose (Heparin) 500 ml @ 27.687 mls/ hr adjust per protocol IV 09/15/16 10:30 10/15/16 10:29 09/15/16 11:18 Warfarin Sodium (Coumadin per pharmacy) 1 ea DAILY PRN MISC Per rx protocol 09/15/16 14:30 10/15/16 14:29 SONIYA RAMOS Sep 15, 2016 15:01
[2016-09-15 16:00] VITALS: BP 88/41
[2016-09-15] MEDS ORDERED: Warfarin Sodium 2.5mg ORAL SCH (17:00)
--- NOTE | 2016-09-15 17:18 | Internal Med Progress Note ---
Subjective Date of Service: Sep 15, 2016 Physician Name Lara Edwards Attending Physician Esa Naqvi MD Current Medications Medications (Trade) Dose Ordered Sig/[place] Route PRN Reason Start Time Stop Time Status Last Admin Dose Admin Acetaminophen (Tylenol) 650 mg Q6HR PRN ORAL Mild Pain/Temp > 100.5 09/15/16 12:00 10/15/16 11:59 Dextrose/Sodium Chloride 1,000 ml @ 100 mls/hr Q10H IV 09/15/16 11:00 10/15/16 10:59 09/15/16 11:15 Gabapentin (Neurontin) 300 mg THREE TIMES A DAY ORAL 09/15/16 13:00 10/15/16 12:59 09/15/16 12:26 Heparin Sodium/ Dextrose (Heparin) 500 ml @ 27.687 mls/ hr adjust per protocol IV 09/15/16 10:30 10/15/16 10:29 09/15/16 11:18 Warfarin Sodium (Coumadin per pharmacy) 1 ea DAILY PRN MISC Per rx protocol 09/15/16 14:30 10/15/16 14:29 Allergies: Coded Allergies: PENICILLINS (Verified Allergy, Unknown, 07/19/16) ROS Limited/Unobtainable: No Constitutional: Reports: no symptoms HEENT: Reports: no symptoms Cardiovascular: Reports: no symptoms Respiratory: Reports: no symptoms Gastrointestinal/Abdominal: Reports: no symptoms Genitourinary: Reports: no symptoms Neurologic/Psychiatric: Reports: weakness Subjective 81 YO M admitted with gen weakness and fall injury/syncope. Cover for Int Sanjay- Dr Naqvi. Objective Last Vital Signs Date Time Temp Pulse Resp B/P Pulse Ox O2 Delivery O2 Flow Rate FiO2 09/15/16 16:00 97.7 70 20 88/41 96 Room Air 09/15/16 08:35 2.0 General Appearance: WD/WN, no apparent distress, alert EENT: PERRL/EOMI, normal ENT inspection, TMs normal Neck: non-tender, normal alignment, supple Cardiovascular: normal peripheral pulses, normal rate, regular rhythm, no gallop/murmur, no JVD Respiratory/Chest: chest wall non-tender, lungs clear, normal breath sounds, no respiratory distress, no accessory muscle use Abdomen: normal bowel sounds, non tender, soft, no organomegaly, no mass Extremities: normal range of motion Neurologic: chronometer repairer II-XII grossly normal, no motor/sensory deficits Skin: normal pigmentation, warm/dry Laboratory Tests Test 09/14/16 18:15 09/14/16 23:30 09/15/16 07:15 09/15/16 15:55 Erythrocyte Sedimentation Rate 47 MM/HR (0-20) H Reticulocyte Count 0.4 % (0.0-2.0) Prothrombin Time 14.1 SEC (9.30-11.50) H 13.5 SEC (9.30-11.50) H Prothromb Time International Ratio 1.4 (0.9-1.1) H 1.3 (0.9-1.1) H Activated Partial Thromboplast Time 30 SEC (23-33) 30 SEC (23-33) > 150 SEC (23-33) *H Pending Urine Color Pending Urine Appearance Pending Urine pH Pending Urine Specific [place] Pending Urine Protein Pending Urine Glucose (UA) Pending Urine Ketones Pending Urine Occult Blood Pending Urine Nitrite Pending Urine Bilirubin Pending Urine Urobilinogen Pending Urine Leukocyte Esterase Pending Urine RBC Pending Urine WBC Pending Urine Squamous Epithelial Cells Pending Urine Bacteria Pending Urine Eosinophils Pending Sodium Level 140 mEQ/L (135-145) 142 mEQ/L (135-145) Potassium Level 3.8 mEQ/L (3.4-4.9) 3.9 mEQ/L (3.4-4.9) Chloride Level 99 mEQ/L (98-107) 101 mEQ/L (98-107) Carbon Dioxide Level 25 mEQ/L (20-30) 24 mEQ/L (20-30) Anion Gap 16 (5-15) H 17 (5-15) H Blood Urea Nitrogen 44 mg/dL (7-23) H 35 mg/dL (7-23) H Creatinine 2.5 mg/dL (0.7-1.2) H 2.1 mg/dL (0.7-1.2) H Estimat Glomerular Filtration Rate mL/min (>60) mL/min (>60) Glucose Level 137 mg/dL (74-106) H 112 mg/dL (74-106) H Plasma/Serum Osmolality Pending Uric Acid 13.4 mg/dL (3.0-7.5) H Calcium Level 8.0 mg/dL (8.6-10.2) L 8.1 mg/dL (8.6-10.2) L Iron Level 34 ug/dL (59-158) L Total Iron Binding Capacity 134 ug/dL (250-400) L Percent Iron Saturation 25 % (15-50) Unsaturated Iron Binding 100 ug/dL (112-346) L Total Bilirubin < 0.2 mg/dL (0.0-1.2) Aspartate Amino Transf (AST/SGOT) 25 U/L (5-40) Alanine Aminotransferase (ALT/SGPT) 15 U/L (3-41) Alkaline Phosphatase 58 U/L (40-129) Lactate Dehydrogenase 323 U/L (135-230) H Total Creatine Kinase 286 U/L (38-174) H Total Protein 5.5 g/dL (6.6-8.7) L Albumin 2.7 g/dL (3.5-5.2) L Globulin 2.8 g/dL Albumin/Globulin Ratio 0.9 (1.0-2.7) L Carcinoembryonic Antigen 2.7 ng/mL Vitamin B12 Level 824 pg/mL (211-946) Folate 3.0 ng/mL (>3.0) L Thyroid Stimulating Hormone (TSH) 1.320 uIU/mL (0.300-4.500) 3.420 uIU/mL (0.300-4.500) Free Triiodothyronine 1.7 pg/mL (2.3-4.2) L Cortisol 18.9 ug/dL (.) White Blood Count 12.4 K/UL (4.8-10.8) H 13.8 K/UL (4.8-10.8) H Red Blood Count 3.35 M/UL (4.70-6.10) L 3.84 M/UL (4.70-6.10) L Hemoglobin 9.4 G/DL (14.2-18.0) L 10.8 G/DL (14.2-18.0) L Hematocrit 29.8 % (42.0-52.0) L 33.5 % (42.0-52.0) L Mean Corpuscular Volume 89 FL (80-99) 87 FL (80-99) Mean Corpuscular Hemoglobin 28.0 PG (27.0-31.0) 28.1 PG (27.0-31.0) Mean Corpuscular Hemoglobin Concent 31.4 G/DL (32.0-36.0) L 32.2 G/DL (32.0-36.0) Red Cell Distribution Width 14.0 % (11.6-14.8) 14.3 % (11.6-14.8) Platelet Count 343 K/UL (150-450) 462 K/UL (150-450) H Mean Platelet Volume 5.6 FL (6.5-10.1) L 6.0 FL (6.5-10.1) L Neutrophils (%) (Auto) 75.2 % (45.0-75.0) H 73.1 % (45.0-75.0) Lymphocytes (%) (Auto) 14.7 % (20.0-45.0) L 16.7 % (20.0-45.0) L Monocytes (%) (Auto) 9.0 % (1.0-10.0) 9.1 % (1.0-10.0) Eosinophils (%) (Auto) 0.3 % (0.0-3.0) 0.7 % (0.0-3.0) Basophils (%) (Auto) 0.8 % (0.0-2.0) 0.4 % (0.0-2.0) Phosphorus Level 3.2 mg/dL (2.5-4.8) Magnesium Level 1.9 mg/dL (1.7-2.5) Troponin I < 0.30 ng/mL (<=0.30) Pro-B-Type Natriuretic Peptide 1772 pg/mL (0-450) H Free Thyroxine 0.99 ng/dL (0.86-1.85) Intake and Output 09/14/16 09/15/16 19:00 07:00 Intake Total 940 ml 311.196 ml Output Total 450 ml Balance 940 ml -138.804 ml Intake Oral 240 ml 240 ml IV Total 700 ml 71.196 ml Output Urine Total 450 ml # Voids 1 4 Assessment/Plan Problem List: (1) Syncope Assessment & Plan: Cardiology and neurology workup in progress. Likely due to hypotension and dehydration. (2) Fall with injury (3) HTN (hypertension) Assessment & Plan: Hypotensive; hold antihypertensive meds. (4) Peripheral neuropathy Assessment & Plan: Cont neurontin. (5) Weakness (6) Hypokalemia Assessment & Plan: Replace potassium. (7) Renal failure Assessment & Plan: See nephrology note. (8) Acute thrombosis of deep vein of lower extremity Assessment & Plan: Continue coumadin per pharmacy protocol. Status: not improved LARA EDWARDS Sep 15, 2016 17:18
[2016-09-15 20:00] VITALS: BP 94/43
--- NOTE | 2016-09-15 23:08 | Consultation ---
DATE OF CONSULTATION: 09/15/2016 CONSULTING PHYSICIAN: Jessica Ni M.D. REFERRING PHYSICIAN: Esa Naqvi M.D. REASON FOR CONSULTATION: Acute renal failure. HISTORY OF PRESENT ILLNESS: The patient is an 81-year-old male with past medical history significant for history of back pain, history of lower extremity injury, who was brought in to [facility] after he had a history of syncope and fall. Upon arrival in the ER, the patient was found to have acute renal failure. Consequently, the patient had a duplex ultrasound of the lower extremities, found to have DVT on the right lower extremity and left lower extremity. The patient was started on heparin drip and was transferred to a monitored bed. I was called for management of renal disease and electrolyte imbalance. PAST MEDICAL HISTORY: History of hypertension. History of disk disease. There is no other history. SOCIAL HISTORY: He lives at home. There is no history of tobacco, alcohol, or drug use. FAMILY HISTORY: Noncontributory. REVIEW OF SYSTEMS: General: He complained of generalized weakness. Denied any fever, chills, or night sweats. Head And Neck: Denies any dysphagia or odynophagia. Pulmonary: Mild shortness of breath. No cough or sputum. Cardiovascular: No chest pain or palpitation. Gastrointestinal: Denies any nausea, vomiting, diarrhea, hematemesis, or hematochezia. Genitourinary: Denies any dysuria, frequency, or hematuria. Musculoskeletal: He complained of back pain. PHYSICAL EXAMINATION: VITAL SIGNS: The patient had temperature of 98.0, blood pressure of 110/42, pulse rate of 82, respiratory rate of 18. HEAD AND NECK: No JVP. No LAD. No thyromegaly. Extraocular movements are intact. Pupils are reactive to light and accommodation. LUNGS: Bilateral rhonchi. CARDIAC: Regular rate and rhythm. S1 and S2. No murmur. No rub. ABDOMEN: Soft, nontender, and nondistended. EXTREMITIES: Trace edema. No clubbing. No cyanosis. LABORATORY DATA: The patient had WBC count of 13,000, hemoglobin of 10, hematocrit of 33, platelet count of 462,000. Chemistry reveals sodium 142, potassium 3.8, 99 chloride, 24 bicarb, BUN of 44, creatinine of 2.5, glucose of 137, uric acid of 13.5, calcium of 8, iron of 34, sat of 75, CPK of 286. LDH of 323. Albumin of 2.7. BNP of 1720. UA is still pending. Urine study is pending. Ultrasound of the kidney revealed distended urinary bladder, suspect a nonobstructive stone. ASSESSMENT: 1. Acute renal failure. The etiology of acute renal failure is ATN due to hypotension and unstable hemodynamics. 2. Rule out obstructive uropathy. 3. Hypotension. 4. DVT. 5. Rule out PE. 6. History of hypertension. 7. Rule out NSAID nephropathy. PLAN: Plan is for the patient to place a Cass[place] catheter. Check the random urine protein-creatinine ratio to calculate the proteinuria. Check the urine sodium and creatinine to calculate fractional excretion of sodium. . Avoid any NSAIDs or nephrotoxic and hold antihypertensive medication. Thank you Dr. Naqvi for allowing me to participate in the care of this patient. Jessica Ni M.D. DR: ASHLEY JOB#: [id number] CC:
[2016-09-16] VITALS: BP 106/49
[2016-09-16 04:00] VITALS: BP 104/51
[2016-09-16] MEDS: D5 1/2NS 1,000 ML IV SCH ×2 (06:47→17:07)
[2016-09-16 07:17] LABS: INR 1.3 (0.9-1.1); PROTHROMBIN TIME 12.9 SEC (9.30-11.50)
[2016-09-16 07:19] LABS: TROPONIN I < 0.30 ng/mL (<=0.30)
[2016-09-16 07:38] LABS: ANION GAP 15 (5-15); CALCIUM 7.8 mg/dL (8.6-10.2); CARBON DIOXIDE 25 mEQ/L (20-30); CHLORIDE 100 mEQ/L (98-107); CREATININE 1.3 mg/dL (0.7-1.2); HEMOLYSIS 16; POTASSIUM 3.6 mEQ/L (3.4-4.9); SODIUM 140 mEQ/L (135-145)
[2016-09-16 08:00] VITALS: BP 117/47
[2016-09-16] MEDS: Heparin 25,000u/D5W 500ml 500 ML IV SCH (10:07)
[2016-09-16] MEDS ORDERED: Heparin 5000 units/ml inj IV ONE (10:15)
[2016-09-16 12:00] VITALS: BP 109/49
--- NOTE | 2016-09-16 13:22 | Pulmonology Progress Note ---
Assessment/Plan Assessment/Plan ASSESSMENT s/p fall vs syncope acute renal failure acute encephalopathy acute DVT BLE elevated CK, likely 2 to fall hypokalemia -resolved anemia of folate deficiency PLAN OF CARE tele venous Duplex with acute BLE DVT heparin drip and Coumadin to bridge to therapeutic INR ; INR still subtherapeutic IVF, monitor renal parameetrs, lytes creat down to 1.3 nephro follows avoid nephrotoxic renal US with normal bilateral kidney echogenicity ECHO with EF 60% and RVSP of 24 CK trending down fall precautions PT eval and Rx anemia workup revealed low folate, start on Folate 5 mg daily, B12 WNL case discussed and evaluated by supervising physician Subjective Allergies: Coded Allergies: PENICILLINS (Verified Allergy, Unknown, 07/19/16) Subjective no signs of respiratory distress denies chest pain, SOB, occasional leg pain Objective Last 24 Hour Vital Signs Date Time Temp Pulse Resp B/P Pulse Ox O2 Delivery O2 Flow Rate FiO2 09/16/16 12:00 97.9 71 17 109/49 98 Room Air 09/16/16 08:00 97.7 70 18 117/47 100 Room Air 09/16/16 08:00 72 09/16/16 04:00 97.9 71 18 104/51 97 Room Air 09/16/16 04:00 70 09/16/16 00:00 70 09/16/16 00:00 98.7 70 19 106/49 95 Room Air 09/15/16 20:00 72 09/15/16 20:00 97.7 70 21 94/43 98 Room Air 09/15/16 16:00 97.7 70 20 88/41 96 Room Air 09/15/16 16:00 81 Intake and Output 09/15/16 09/16/16 19:00 07:00 Intake Total 1199.072 ml 1821.048 ml Output Total 1100 ml Balance 1199.072 ml 721.048 ml Intake Oral 240 ml 360 ml IV Total 959.072 ml 1461.048 ml Output Urine Total 1100 ml # Voids 1 # Bowel Movements 1 General Appearance: WD/WN, no acute distress HEENT: normocephalic, atraumatic, anicteric, mucous membranes moist, PERRL Respiratory/Chest: chest wall non-tender, lungs clear, normal breath sounds, no respiratory distress, no accessory muscle use Cardiovascular: normal rate, regular rhythm, no JVD Abdomen: soft, non tender, non distended Genitourinary: normal external genitalia Extremities: no edema, pedal pulses normal Neurologic/Psychiatric: no motor/sensory deficits, alert, oriented x 3, responsive Musculoskeletal: normal muscle bulk Laboratory Tests 09/15/16 15:55: Activated Partial Thromboplast Time 138H 09/16/16 01:00: Activated Partial Thromboplast Time 84H 09/16/16 04:40: Activated Partial Thromboplast Time 64H, Prothrombin Time 12.9H, Prothromb Time International Ratio 1.3H, Sodium Level 140, Potassium Level 3.6, Chloride Level 100, Carbon Dioxide Level 25, Anion Gap 15, Blood Urea Nitrogen 23, Creatinine 1.3H, Estimat Glomerular Filtration Rate , Glucose Level 86, Calcium Level 7.8L , Troponin I < 0.30, Pro-B-Type Natriuretic Peptide 1504H Current Medications Medications (Trade) Dose Ordered Sig/[place] Route PRN Reason Start Time Stop Time Status Last Admin Dose Admin Acetaminophen (Tylenol) 650 mg Q6HR PRN ORAL Mild Pain/Temp > 100.5 09/15/16 12:00 10/15/16 11:59 Dextrose/Sodium Chloride 1,000 ml @ 100 mls/hr Q10H IV 09/15/16 11:00 10/15/16 10:59 09/16/16 06:47 Folic Acid (Folate) 1 mg DAILY ORAL 09/16/16 09:00 10/16/16 08:59 09/16/16 08:44 Gabapentin (Neurontin) 300 mg THREE TIMES A DAY ORAL 09/15/16 13:00 10/15/16 12:59 09/16/16 12:24 Heparin Sodium/ Dextrose (Heparin) 500 ml @ 25.71 mls/ hr adjust per protocol IV 09/15/16 10:30 10/15/16 10:29 09/16/16 10:07 Warfarin Sodium (Coumadin per pharmacy) 1 ea DAILY PRN MISC Per rx protocol 09/15/16 14:30 10/15/16 14:29 Warfarin Sodium (Coumadin) 2.5 mg COUMADIN ONCE ORAL 09/16/16 17:00 09/16/16 17:01 Lisa Bartlett NP ([place]) Sep 16, 2016 13:22
--- NOTE | 2016-09-16 13:22 | Internal Med Progress Note ---
Subjective Date of Service: Sep 16, 2016 Physician Name Amarjit Edwards Attending Physician Esa Naqvi MD Current Medications Medications (Trade) Dose Ordered Sig/[place] Route PRN Reason Start Time Stop Time Status Last Admin Dose Admin Acetaminophen (Tylenol) 650 mg Q6HR PRN ORAL Mild Pain/Temp > 100.5 09/15/16 12:00 10/15/16 11:59 Dextrose/Sodium Chloride 1,000 ml @ 100 mls/hr Q10H IV 09/15/16 11:00 10/15/16 10:59 09/16/16 06:47 Folic Acid (Folate) 1 mg DAILY ORAL 09/16/16 09:00 10/16/16 08:59 09/16/16 08:44 Gabapentin (Neurontin) 300 mg THREE TIMES A DAY ORAL 09/15/16 13:00 10/15/16 12:59 09/16/16 12:24 Heparin Sodium/ Dextrose (Heparin) 500 ml @ 25.71 mls/ hr adjust per protocol IV 09/15/16 10:30 10/15/16 10:29 09/16/16 10:07 Warfarin Sodium (Coumadin per pharmacy) 1 ea DAILY PRN MISC Per rx protocol 09/15/16 14:30 10/15/16 14:29 Warfarin Sodium (Coumadin) 2.5 mg COUMADIN ONCE ORAL 09/16/16 17:00 09/16/16 17:01 Allergies: Coded Allergies: PENICILLINS (Verified Allergy, Unknown, 07/19/16) ROS Limited/Unobtainable: No Constitutional: Reports: no symptoms HEENT: Reports: no symptoms Cardiovascular: Reports: no symptoms Respiratory: Reports: no symptoms Gastrointestinal/Abdominal: Reports: no symptoms Genitourinary: Reports: no symptoms Neurologic/Psychiatric: Reports: no symptoms Subjective 81 YO M admitted with gen weakness and fall injury/syncope. Cover for Int Med- Dr Naqvi. Await nursing home fac placement Objective Last Vital Signs Date Time Temp Pulse Resp B/P Pulse Ox O2 Delivery O2 Flow Rate FiO2 09/16/16 12:00 97.9 71 17 109/49 98 Room Air 09/15/16 08:35 2.0 Laboratory Tests Test 09/15/16 15:55 09/16/16 01:00 09/16/16 04:40 Activated Partial Thromboplast Time 138 SEC (23-33) H 84 SEC (23-33) H 64 SEC (23-33) H Prothrombin Time 12.9 SEC (9.30-11.50) H Prothromb Time International Ratio 1.3 (0.9-1.1) H Sodium Level 140 mEQ/L (135-145) Potassium Level 3.6 mEQ/L (3.4-4.9) Chloride Level 100 mEQ/L (98-107) Carbon Dioxide Level 25 mEQ/L (20-30) Anion Gap 15 (5-15) Blood Urea Nitrogen 23 mg/dL (7-23) Creatinine 1.3 mg/dL (0.7-1.2) H Estimat Glomerular Filtration Rate mL/min (>60) Glucose Level 86 mg/dL (74-106) Calcium Level 7.8 mg/dL (8.6-10.2) L Troponin I < 0.30 ng/mL (<=0.30) Pro-B-Type Natriuretic Peptide 1504 pg/mL (0-450) H Intake and Output 09/15/16 09/16/16 19:00 07:00 Intake Total 1199.072 ml 1821.048 ml Output Total 1100 ml Balance 1199.072 ml 721.048 ml Intake Oral 240 ml 360 ml IV Total 959.072 ml 1461.048 ml Output Urine Total 1100 ml # Voids 1 # Bowel Movements 1 Objective General Appearance: WD/WN, no apparent distress, alert EENT: PERRL/EOMI, normal ENT inspection, TMs normal Neck: non-tender, normal alignment, supple Cardiovascular: normal peripheral pulses, normal rate, regular rhythm, no gallop/murmur, no JVD Respiratory/Chest: chest wall non-tender, lungs clear, normal breath sounds, no respiratory distress, no accessory muscle use Abdomen: normal bowel sounds, non tender, soft, no organomegaly, no mass Extremities: normal range of motion 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 Likely due to hypotension and dehydration. (2) Fall with injury (3) HTN (hypertension) Assessment & Plan: Hypotensive; hold antihypertensive meds. (4) Peripheral neuropathy Assessment & Plan: Cont neurontin. (5) Weakness (6) Hypokalemia Assessment & Plan: Replace potassium. (7) Renal failure Assessment & Plan: See nephrology note. (8) Acute thrombosis of deep vein of lower extremity Assessment & Plan: Continue coumadin per pharmacy protocol. Status: progressing Assessment/Plan Await half-way facility placement-see discharge planning note. AMARJIT EDWARDS Sep 16, 2016 13:22
[2016-09-16] MEDS ORDERED: D5 1/2NS 1000ml IV ONE (14:54)
[2016-09-16 16:00] VITALS: BP 108/55
--- NOTE | 2016-09-16 16:51 | Nephrology Progress Note ---
Assessment/Plan Assessment 1. Acute renal failure. 2. Rule out obstructive uropathy. 3. Hypotension. 4. DVT. 5. Rule out PE. 6. History of hypertension. 7. Rule out NSAID nephropathy. Plan plan to continue current iv monitoring electrolyte replace electrolyte as need it continue [place] cath Subjective ROS Limited/Unobtainable: Yes Constitutional: Reports: no symptoms HEENT: Reports: no symptoms Genitourinary: Reports: no symptoms Neurologic/Psychiatric: Reports: no symptoms Subjective alert and wake c/o back Objective Objective Last 24 Hour Vital Signs Date Time Temp Pulse Resp B/P Pulse Ox O2 Delivery O2 Flow Rate FiO2 09/16/16 12:00 69 09/16/16 12:00 97.9 71 17 109/49 98 Room Air 09/16/16 08:00 97.7 70 18 117/47 100 Room Air 09/16/16 08:00 72 09/16/16 04:00 97.9 71 18 104/51 97 Room Air 09/16/16 04:00 70 09/16/16 00:00 70 09/16/16 00:00 98.7 70 19 106/49 95 Room Air 09/15/16 20:00 72 09/15/16 20:00 97.7 70 21 94/43 98 Room Air Intake and Output 09/15/16 09/16/16 19:00 07:00 Intake Total 1199.072 ml 1821.048 ml Output Total 1100 ml Balance 1199.072 ml 721.048 ml Intake Oral 240 ml 360 ml IV Total 959.072 ml 1461.048 ml Output Urine Total 1100 ml # Voids 1 # Bowel Movements 1 Laboratory Tests 09/16/16 01:00: Activated Partial Thromboplast Time 84H 09/16/16 04:40: Activated Partial Thromboplast Time 64H, Prothrombin Time 12.9H, Prothromb Time International Ratio 1.3H, Sodium Level 140, Potassium Level 3.6, Chloride Level 100, Carbon Dioxide Level 25, Anion Gap 15, Blood Urea Nitrogen 23, Creatinine 1.3H, Estimat Glomerular Filtration Rate , Glucose Level 86, Calcium Level 7.8L , Troponin I < 0.30, Pro-B-Type Natriuretic Peptide 1504H Height (Feet): 5 Height (Inches): 9.00 Weight (Pounds): 218 Objective HEAD AND NECK: No JVP. No LAD. No thyromegaly. Extraocular movements are intact. Pupils are reactive to light and accommodation. LUNGS: Bilateral rhonchi. CARDIAC: Regular rate and rhythm. S1 and S2. No murmur. No rub. ABDOMEN: Soft, nontender, and nondistended. EXTREMITIES: Trace edema. No clubbing. No cyanosis. TATUM ROBERTS Sep 16, 2016 16:51
[2016-09-16] MEDS ORDERED: Warfarin Sodium 2.5mg ORAL ONE (17:00)
[2016-09-16] MEDS ORDERED: Heparin 25,000u/D5W 500ml 500 ML IV SCH (18:00)
--- NOTE | 2016-09-16 19:09 | Cardiac Electrophysiology PN ---
Assessment/Plan Status Narrative Technically difficult and limited study due to poor apical windows. Apical views obtained from subcostal. Study quality precludes accurate assessment of regional wall motion. Normal left ventricular chamber size, systolic function and wall motion to extent visualized. Left ventricular ejection fraction estimated to be 60 %. Mild left ventricular hypertrophy. No evidence of pericardial fat or effusion. All other cardiac chamber sizes are within normal limits. Mild focal aortic valve sclerosis with adequate cusp excursion. Mildly thickened mitral valve leaflets with normal excursion. Mild mitral annulus and aortic root calcification. Pulmonic valve not well visualized. Normal tricuspid valve structure. IVC at normal size with physiologic collapse. A color flow and spectral Doppler study was performed and revealed: No aortic regurgitation. Mild mitral regurgitation. Mitral diastolic velocities suggest reduced left ventricular relaxation (Grade I ). Mild tricuspid regurgitation. Tricuspid systolic velocities suggests peak right ventricular systolic pressure of 24 mmHg. No pulmonic regurgitation present. Assessment/Plan 1. Status post fall versus syncope. Ruled out for myocardial infarction. Echocardiogram showed Nl EF. Likely due to dehydration. 2. Acute renal failure. Continue dehydration D5!/2 NS at 100 cc/hr.The patient' s creatinine was 4.13 at [place], is improving. 3. Elevated CPK due to fall. 4. Hypokalemia, which is already replaced. 5. Bilateral LE DVT. On Heparin drip and Coumadin per pharmacy. BURTON RN Subjective Subjective On tele.No chest pain or SOB. In SR with PACs Objective Last 24 Hour Vital Signs Date Time Temp Pulse Resp B/P Pulse Ox O2 Delivery O2 Flow Rate FiO2 09/16/16 16:00 97.9 77 20 108/55 98 Room Air 09/16/16 12:00 69 09/16/16 12:00 97.9 71 17 109/49 98 Room Air 09/16/16 08:00 97.7 70 18 117/47 100 Room Air 09/16/16 08:00 72 09/16/16 04:00 97.9 71 18 104/51 97 Room Air 09/16/16 04:00 70 09/16/16 00:00 70 09/16/16 00:00 98.7 70 19 106/49 95 Room Air 09/15/16 20:00 72 09/15/16 20:00 97.7 70 21 94/43 98 Room Air Intake and Output 09/15/16 09/16/16 19:00 07:00 Intake Total 1199.072 ml 1821.048 ml Output Total 1100 ml Balance 1199.072 ml 721.048 ml Intake Oral 240 ml 360 ml IV Total 959.072 ml 1461.048 ml Output Urine Total 1100 ml # Voids 1 # Bowel Movements 1 Laboratory Tests Test 09/16/16 01:00 09/16/16 04:40 09/16/16 16:08 Activated Partial Thromboplast Time 84 SEC (23-33) H 64 SEC (23-33) H 111 SEC (23-33) H Prothrombin Time 12.9 SEC (9.30-11.50) H Prothromb Time International Ratio 1.3 (0.9-1.1) H Sodium Level 140 mEQ/L (135-145) Potassium Level 3.6 mEQ/L (3.4-4.9) Chloride Level 100 mEQ/L (98-107) Carbon Dioxide Level 25 mEQ/L (20-30) Anion Gap 15 (5-15) Blood Urea Nitrogen 23 mg/dL (7-23) Creatinine 1.3 mg/dL (0.7-1.2) H Estimat Glomerular Filtration Rate mL/min (>60) Glucose Level 86 mg/dL (74-106) Calcium Level 7.8 mg/dL (8.6-10.2) L Troponin I < 0.30 ng/mL (<=0.30) Pro-B-Type Natriuretic Peptide 1504 pg/mL (0-450) H Objective NECK: Shows no JVD. LUNGS: Clear. CARDIOVASCULAR: Regular S1 and S2 with no gallop or murmur. ABDOMEN: Soft. EXTREMITIES: 1+ pitting edema. ANNA KOEHLER Sep 16, 2016 19:09
[2016-09-16 20:00] VITALS: BP 115/48
[2016-09-17] VITALS (7 sets, daily range): BP systolic 105–149; BP diastolic 48–79
[2016-09-17] MEDS ORDERED: Heparin 5000 units/ml inj IV ONE ×2 (02:15→18:30)
[2016-09-17] MEDS: D5 1/2NS 1,000 ML IV SCH (02:51)
[2016-09-17] MEDS: Heparin 25,000u/D5W 500ml 500 ML IV SCH ×2 (02:55→11:50)
[2016-09-17 09:39] LABS: BASOPHILS % (AUTO) 0.7 % (0.0-2.0); EOSINOPHILS % (AUTO) 1.5 % (0.0-3.0); LYMPHOCYTES % (AUTO) 18.6 % (20.0-45.0); MEAN CORPUSCULAR HEMOGLOBIN 28.1 PG (27.0-31.0); MEAN CORPUSCULAR HGB CONC 32.2 G/DL (32.0-36.0); MEAN CORPUSCULAR VOLUME 87 FL (80-99); MEAN PLATELET VOLUME 5.8 FL (6.5-10.1); MONOCYTES % (AUTO) 7.5 % (1.0-10.0); NEUTROPHILS % (AUTO) 71.8 % (45.0-75.0); PLATELET COUNT 398 K/UL (150-450); RED BLOOD COUNT 3.55 M/UL (4.70-6.10); RED CELL DISTRIBUTION WIDTH 14.4 % (11.6-14.8); WHITE BLOOD COUNT 10.8 K/UL (4.8-10.8)
[2016-09-17 09:53] LABS: INR 1.2 (0.9-1.1); PROTHROMBIN TIME 11.9 SEC (9.30-11.50)
[2016-09-17 09:57] LABS: ANION GAP 13 (5-15); CALCIUM 7.9 mg/dL (8.6-10.2); CARBON DIOXIDE 26 mEQ/L (20-30); CHLORIDE 98 mEQ/L (98-107); HEMOLYSIS 2; POTASSIUM 3.5 mEQ/L (3.4-4.9); SODIUM 137 mEQ/L (135-145)
--- NOTE | 2016-09-17 10:25 | Pulmonology Progress Note ---
Assessment/Plan Assessment/Plan ASSESSMENT s/p fall vs syncope acute renal failure acute encephalopathy acute DVT BLE elevated CK, likely 2 to fall hypokalemia -resolved anemia of folate deficiency PLAN OF CARE tele venous Duplex with acute BLE DVT heparin drip and Coumadin to bridge to therapeutic INR ; INR still subtherapeutic dc IVF, creat down to normal nephro follows avoid nephrotoxic renal US with normal bilateral kidney echogenicity ECHO with EF 60% and RVSP of 24 CK trending down fall precautions PT eval and Rx anemia workup revealed low folate, started on Folate 5 mg daily, B12 WNL, will need folate supplementation when discharged case discussed and evaluated by supervising physician case discussed and evaluated by supervising physician Subjective Allergies: Coded Allergies: PENICILLINS (Verified Allergy, Unknown, 07/19/16) Subjective no signs of respiratory distress denies chest pain, SOB, occasional leg pain Objective Last 24 Hour Vital Signs Date Time Temp Pulse Resp B/P Pulse Ox O2 Delivery O2 Flow Rate FiO2 09/17/16 08:00 97 09/17/16 08:00 97.7 83 19 121/51 98 Room Air 09/17/16 04:20 98.2 77 20 149/79 96 Room Air 09/17/16 04:00 76 09/17/16 00:00 98.0 70 20 110/50 97 Room Air 09/17/16 00:00 73 09/16/16 20:00 98.1 82 18 115/48 97 Room Air 09/16/16 20:00 78 09/16/16 16:00 74 09/16/16 16:00 97.9 77 20 108/55 98 Room Air 09/16/16 12:00 69 09/16/16 12:00 97.9 71 17 109/49 98 Room Air Intake and Output 09/16/16 09/17/16 19:00 07:00 Intake Total 1865.232 ml 1488.678 ml Output Total 430 ml 2000 ml Balance 1435.232 ml -511.322 ml Intake Oral 520 ml IV Total 1345.232 ml 1488.678 ml Output Urine Total 430 ml 2000 ml Objective General Appearance: WD/WN, no acute distress HEENT: normocephalic, atraumatic, anicteric, mucous membranes moist, PERRL Respiratory/Chest: chest wall non-tender, lungs clear, normal breath sounds, no respiratory distress, no accessory muscle use Cardiovascular: normal rate, regular rhythm, no JVD Abdomen: soft, non tender, non distended Genitourinary: normal external genitalia Extremities: no edema, pedal pulses normal Neurologic/Psychiatric: no motor/sensory deficits, alert, oriented x 3, responsive Musculoskeletal: normal muscle bulk Laboratory Tests 09/16/16 16:08: Activated Partial Thromboplast Time 111H 09/17/16 00:45: Activated Partial Thromboplast Time 30 09/17/16 09:15: Activated Partial Thromboplast Time > 150*H, White Blood Count 10.8, Red Blood Count 3.55L, Hemoglobin 10.0L, Hematocrit 31.0L, Mean Corpuscular Volume 87, Mean Corpuscular Hemoglobin 28.1, Mean Corpuscular Hemoglobin Concent 32.2, Red Cell Distribution Width 14.4, Platelet Count 398, Mean Platelet Volume 5.8L, Neutrophils (%) (Auto) 71.8, Lymphocytes (%) (Auto) 18.6L, Monocytes (%) (Auto) 7.5, Eosinophils (%) (Auto) 1.5, Basophils (%) (Auto) 0.7, Prothrombin Time 11.9H, Prothromb Time International Ratio 1.2H, Sodium Level 137, Potassium Level 3.5, Chloride Level 98, Carbon Dioxide Level 26, Anion Gap 13, Blood Urea Nitrogen 11, Creatinine 1.0, Estimat Glomerular Filtration Rate , Glucose Level 127H, Calcium Level 7.9L Current Medications Medications (Trade) Dose Ordered Sig/[place] Route PRN Reason Start Time Stop Time Status Last Admin Dose Admin Acetaminophen (Tylenol) 650 mg Q6HR PRN ORAL Mild Pain/Temp > 100.5 09/15/16 12:00 10/15/16 11:59 Dextrose/Sodium Chloride (D5 0.45% NS) 1,000 ml @ 100 mls/hr Q10H IV 09/15/16 11:00 10/15/16 10:59 09/17/16 02:51 Folic Acid 5 mg 5 mg DAILY ORAL 09/17/16 09:00 10/17/16 08:59 09/17/16 08:24 Gabapentin (Neurontin) 300 mg THREE TIMES A DAY ORAL 09/15/16 13:00 10/15/16 12:59 09/17/16 08:24 Heparin Sodium/ Dextrose (Heparin) 500 ml @ 27.687 mls/ hr adjust per protocol IV 09/17/16 02:03 10/16/16 17:59 09/17/16 02:55 Warfarin Sodium (Coumadin per pharmacy) 1 ea DAILY PRN MISC Per rx protocol 09/15/16 14:30 10/15/16 14:29 Warfarin Sodium (Coumadin) 4 mg COUMADIN ONCE PO 09/17/16 17:00 09/17/16 17:01 Dhruv ([facility])Lisa NP Sep 17, 2016 10:25
--- NOTE | 2016-09-17 15:08 | Internal Med Progress Note ---
Subjective Date of Service: Sep 17, 2016 Physician Name Amarjit Edwards Attending Physician Esa Naqvi MD Current Medications Medications (Trade) Dose Ordered Sig/[place] Route PRN Reason Start Time Stop Time Status Last Admin Dose Admin Acetaminophen (Tylenol) 650 mg Q6HR PRN ORAL Mild Pain/Temp > 100.5 09/15/16 12:00 10/15/16 11:59 Folic Acid 5 mg 5 mg DAILY ORAL 09/17/16 09:00 10/17/16 08:59 09/17/16 08:24 Gabapentin (Neurontin) 300 mg THREE TIMES A DAY ORAL 09/15/16 13:00 10/15/16 12:59 09/17/16 12:12 Heparin Sodium/ Dextrose (Heparin) 500 ml @ 19.777 mls/ hr adjust per protocol IV 09/17/16 02:03 10/16/16 17:59 09/17/16 11:50 Warfarin Sodium (Coumadin per pharmacy) 1 ea DAILY PRN MISC Per rx protocol 09/15/16 14:30 10/15/16 14:29 Warfarin Sodium (Coumadin) 4 mg COUMADIN ONCE PO 09/17/16 17:00 09/17/16 17:01 Allergies: Coded Allergies: PENICILLINS (Verified Allergy, Unknown, 07/19/16) ROS Limited/Unobtainable: No Constitutional: Reports: no symptoms HEENT: Reports: no symptoms Cardiovascular: Reports: no symptoms Respiratory: Reports: no symptoms Gastrointestinal/Abdominal: Reports: no symptoms Genitourinary: Reports: no symptoms Neurologic/Psychiatric: Reports: weakness Subjective 81 YO M admitted with gen weakness and fall injury/syncope. Cover for Int Med- Dr Naqvi. Await shelter fac placement Objective Last Vital Signs Date Time Temp Pulse Resp B/P Pulse Ox O2 Delivery O2 Flow Rate FiO2 09/17/16 12:49 97.0 73 17 108/51 98 Room Air 09/15/16 08:35 2.0 Laboratory Tests Test 09/16/16 16:08 09/17/16 00:45 09/17/16 09:15 Activated Partial Thromboplast Time 111 SEC (23-33) H 30 SEC (23-33) > 150 SEC (23-33) *H White Blood Count 10.8 K/UL (4.8-10.8) Red Blood Count 3.55 M/UL (4.70-6.10) L Hemoglobin 10.0 G/DL (14.2-18.0) L Hematocrit 31.0 % (42.0-52.0) L Mean Corpuscular Volume 87 FL (80-99) Mean Corpuscular Hemoglobin 28.1 PG (27.0-31.0) Mean Corpuscular Hemoglobin Concent 32.2 G/DL (32.0-36.0) Red Cell Distribution Width 14.4 % (11.6-14.8) Platelet Count 398 K/UL (150-450) Mean Platelet Volume 5.8 FL (6.5-10.1) L Neutrophils (%) (Auto) 71.8 % (45.0-75.0) Lymphocytes (%) (Auto) 18.6 % (20.0-45.0) L Monocytes (%) (Auto) 7.5 % (1.0-10.0) Eosinophils (%) (Auto) 1.5 % (0.0-3.0) Basophils (%) (Auto) 0.7 % (0.0-2.0) Prothrombin Time 11.9 SEC (9.30-11.50) H Prothromb Time International Ratio 1.2 (0.9-1.1) H Sodium Level 137 mEQ/L (135-145) Potassium Level 3.5 mEQ/L (3.4-4.9) Chloride Level 98 mEQ/L (98-107) Carbon Dioxide Level 26 mEQ/L (20-30) Anion Gap 13 (5-15) Blood Urea Nitrogen 11 mg/dL (7-23) Creatinine 1.0 mg/dL (0.7-1.2) Estimat Glomerular Filtration Rate mL/min (>60) Glucose Level 127 mg/dL (74-106) H Calcium Level 7.9 mg/dL (8.6-10.2) L Intake and Output 09/16/16 09/17/16 19:00 07:00 Intake Total 1865.232 ml 1488.678 ml Output Total 430 ml 2000 ml Balance 1435.232 ml -511.322 ml Intake Oral 520 ml IV Total 1345.232 ml 1488.678 ml Output Urine Total 430 ml 2000 ml Objective General Appearance: WD/WN, no apparent distress, alert EENT: PERRL/EOMI, normal ENT inspection, TMs normal Neck: non-tender, normal alignment, supple Cardiovascular: normal peripheral pulses, normal rate, regular rhythm, no gallop/murmur, no JVD Respiratory/Chest: chest wall non-tender, lungs clear, normal breath sounds, no respiratory distress, no accessory muscle use Abdomen: normal bowel sounds, non tender, soft, no organomegaly, no mass Extremities: normal range of motion 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 Likely due to hypotension and dehydration. (2) Fall with injury (3) HTN (hypertension) Assessment & Plan: Hypotensive; hold antihypertensive meds. (4) Peripheral neuropathy Assessment & Plan: Cont neurontin. (5) Weakness (6) Hypokalemia Assessment & Plan: Replace potassium. (7) Renal failure Assessment & Plan: See nephrology note. (8) Acute thrombosis of deep vein of lower extremity Assessment & Plan: Continue coumadin per pharmacy protocol. Status: not improved Assessment/Plan Await detention facility placement-see discharge planning note. AMARJIT EDWARDS Sep 17, 2016 15:08
[2016-09-17] MEDS ORDERED: Warfarin Sodium 4mg PO ONE (17:00)
[2016-09-17] MEDS ORDERED: Heparin 25,000u/D5W 500ml 500 ML IV SCH (18:30)
[2016-09-18] VITALS: BP 126/55
[2016-09-18] MEDS ORDERED: Heparin 25,000u/D5W 500ml 500 ML IV SCH (01:19)
[2016-09-18] MEDS ORDERED: Heparin 5000 units/ml inj IV ONE (01:30)
[2016-09-18 04:00] VITALS: BP 139/51
[2016-09-18 07:29] LABS: MEAN CORPUSCULAR HGB CONC 32.1 G/DL (32.0-36.0); MEAN CORPUSCULAR VOLUME 87 FL (80-99); MEAN PLATELET VOLUME 6.2 FL (6.5-10.1); PLATELET COUNT 396 K/UL (150-450); RED BLOOD COUNT 3.17 M/UL (4.70-6.10); RED CELL DISTRIBUTION WIDTH 15.1 % (11.6-14.8); WHITE BLOOD COUNT 14.1 K/UL (4.8-10.8)
[2016-09-18 07:45] LABS: ANION GAP 11 (5-15); CARBON DIOXIDE 27 mEQ/L (20-30); CHLORIDE 99 mEQ/L (98-107); CREATININE 0.9 mg/dL (0.7-1.2); HEMOLYSIS 0; POTASSIUM 4.1 mEQ/L (3.4-4.9); SODIUM 137 mEQ/L (135-145)
[2016-09-18 07:56] LABS: INR 1.2 (0.9-1.1); PROTHROMBIN TIME 12.5 SEC (9.30-11.50)
--- NOTE | 2016-09-18 08:01 | Nephrology Progress Note ---
Assessment/Plan Assessment 1. Acute renal failure. 2. obstructive uropathy. 3. Hypotension. 4. DVT. 5. Rule out PE. 6. History of hypertension. Plan plan to continue current iv monitoring electrolyte replace electrolyte as need it hold heparin urine culture Subjective Constitutional: Reports: no symptoms HEENT: Reports: no symptoms Genitourinary: Reports: no symptoms Neurologic/Psychiatric: Reports: no symptoms Subjective alert and wake overnight developed hematuria and low grade temp Objective Objective Last 24 Hour Vital Signs Date Time Temp Pulse Resp B/P Pulse Ox O2 Delivery O2 Flow Rate FiO2 09/18/16 04:00 99.0 97 18 139/51 99 09/18/16 04:00 80 09/18/16 00:00 98.2 77 18 126/55 99 Room Air 09/18/16 00:00 79 09/17/16 20:00 99.5 76 18 128/60 98 Room Air 09/17/16 20:00 81 09/17/16 16:00 97.7 79 18 115/54 99 Room Air 09/17/16 16:00 91 09/17/16 12:49 97.0 73 17 108/51 98 Room Air 09/17/16 12:00 78 09/17/16 11:51 98.4 77 20 105/48 95 Room Air Intake and Output 09/17/16 09/18/16 18:59 06:59 Intake Total 1061.500 ml 328.293 ml Output Total 400 ml 800 ml Balance 661.500 ml -471.707 ml Intake Oral 540 ml IV Total 521.500 ml 328.293 ml Output Urine Total 400 ml 800 ml Laboratory Tests 09/17/16 09:15: White Blood Count 10.8, Red Blood Count 3.55L, Hemoglobin 10.0L, Hematocrit 31.0L, Mean Corpuscular Volume 87, Mean Corpuscular Hemoglobin 28.1, Mean Corpuscular Hemoglobin Concent 32.2, Red Cell Distribution Width 14.4, Platelet Count 398, Mean Platelet Volume 5.8L, Neutrophils (%) (Auto) 71.8, Lymphocytes ( %) (Auto) 18.6L, Monocytes (%) (Auto) 7.5, Eosinophils (%) (Auto) 1.5, Basophils (%) (Auto) 0.7, Prothrombin Time 11.9H, Prothromb Time International Ratio 1.2H, Activated Partial Thromboplast Time > 150*H, Sodium Level 137, Potassium Level 3.5, Chloride Level 98, Carbon Dioxide Level 26, Anion Gap 13, Blood Urea Nitrogen 11, Creatinine 1.0, Estimat Glomerular Filtration Rate , Glucose Level 127H, Calcium Level 7.9L 09/17/16 17:30: Activated Partial Thromboplast Time 53H 09/18/16 00:45: Activated Partial Thromboplast Time 58H 09/18/16 07:15: White Blood Count 14.1H, Red Blood Count 3.17L, Hemoglobin 8.9L, Hematocrit 27.7L, Mean Corpuscular Volume 87, Mean Corpuscular Hemoglobin 28.0, Mean Corpuscular Hemoglobin Concent 32.1, Red Cell Distribution Width 15.1H, Platelet Count 396, Mean Platelet Volume 6.2L, Neutrophils (%) (Auto) , Lymphocytes (%) (Auto) , Monocytes (%) (Auto) , Eosinophils (%) (Auto) , Basophils (%) (Auto) , Prothrombin Time 12.5H, Prothromb Time International Ratio 1.2H, Activated Partial Thromboplast Time [Pending], Sodium Level 137, Potassium Level 4.1, Chloride Level 99, Carbon Dioxide Level 27, Anion Gap 11, Blood Urea Nitrogen 9, Creatinine 0.9, Estimat Glomerular Filtration Rate , Glucose Level 107H, Calcium Level 8.0L, Neutrophils % (Manual) [Pending], Lymphocytes % (Manual) [Pending], Platelet Estimate [Pending], Platelet Morphology [Pending] Height (Feet): 5 Height (Inches): 9.00 Weight (Pounds): 218 Objective HEAD AND NECK: No JVP. No LAD. No thyromegaly. Extraocular movements are intact. Pupils are reactive to light and accommodation. LUNGS: Bilateral rhonchi. CARDIAC: Regular rate and rhythm. S1 and S2. No murmur. No rub. ABDOMEN: Soft, nontender, and nondistended. EXTREMITIES: Trace edema. No clubbing. No cyanosis. TATUM ROBERTS Sep 18, 2016 08:01
[2016-09-18 08:09] VITALS: BP 122/50
[2016-09-18 08:35] LABS: ANISOCYTOSIS 1+; BAND NEUTROPHILS % (MANUAL) 0 % (0-8); BASOPHILS % (MANUAL) 0 % (0-2); EOSINOPHILS % (MANUAL) 0 % (0-3); HYPOCHROMASIA 2+; LYMPHOCYTES % (MANUAL) 10 % (20-45); NEUTROPHILS % (MANUAL) 84 % (45-75); PLATELET ESTIMATE ADEQUATE; PLATELET MORPHOLOGY NORMAL; SPHEROCYTES 1+; TOTAL CELLS COUNTED 100
--- NOTE | 2016-09-18 10:28 | Internal Med Progress Note ---
Subjective Date of Service: Sep 18, 2016 Physician Name Amarjit Edwards Attending Physician Esa Naqvi MD Current Medications Medications (Trade) Dose Ordered Sig/[place] Route PRN Reason Start Time Stop Time Status Last Admin Dose Admin Acetaminophen (Tylenol) 650 mg Q6HR PRN ORAL Mild Pain/Temp > 100.5 09/15/16 12:00 10/15/16 11:59 09/18/16 08:04 Ceftriaxone Sodium/Dextrose (Rocephin/D5W) 55 ml @ 110 mls/hr Q24H IVPB 09/18/16 11:00 09/25/16 10:59 Folic Acid 5 mg 5 mg DAILY ORAL 09/17/16 09:00 10/17/16 08:59 09/18/16 08:04 Gabapentin (Neurontin) 300 mg THREE TIMES A DAY ORAL 09/15/16 13:00 10/15/16 12:59 09/18/16 08:03 Warfarin Sodium (Coumadin per pharmacy) 1 ea DAILY PRN MISC Per rx protocol 09/15/16 14:30 10/15/16 14:29 Allergies: Coded Allergies: PENICILLINS (Verified Allergy, Unknown, 07/19/16) ROS Limited/Unobtainable: Yes Subjective 81 YO M admitted with gen weakness and fall injury/syncope. Cover for Int Med- Dr Naqvi. Await alf fac placement. Low grade fever overnight. Objective Last Vital Signs Date Time Temp Pulse Resp B/P Pulse Ox O2 Delivery O2 Flow Rate FiO2 09/18/16 09:05 99.7 09/18/16 08:09 90 20 122/50 95 Room Air 09/15/16 08:35 2.0 Laboratory Tests Test 09/17/16 17:30 09/18/16 00:45 09/18/16 07:15 Activated Partial Thromboplast Time 53 SEC (23-33) H 58 SEC (23-33) H 105 SEC (23-33) H White Blood Count 14.1 K/UL (4.8-10.8) H Red Blood Count 3.17 M/UL (4.70-6.10) L Hemoglobin 8.9 G/DL (14.2-18.0) L Hematocrit 27.7 % (42.0-52.0) L Mean Corpuscular Volume 87 FL (80-99) Mean Corpuscular Hemoglobin 28.0 PG (27.0-31.0) Mean Corpuscular Hemoglobin Concent 32.1 G/DL (32.0-36.0) Red Cell Distribution Width 15.1 % (11.6-14.8) H Platelet Count 396 K/UL (150-450) Mean Platelet Volume 6.2 FL (6.5-10.1) L Neutrophils (%) (Auto) % (45.0-75.0) Lymphocytes (%) (Auto) % (20.0-45.0) Monocytes (%) (Auto) % (1.0-10.0) Eosinophils (%) (Auto) % (0.0-3.0) Basophils (%) (Auto) % (0.0-2.0) Differential Total Cells Counted 100 Neutrophils % (Manual) 84 % (45-75) H Lymphocytes % (Manual) 10 % (20-45) L Monocytes % (Manual) 6 % (1-10) Eosinophils % (Manual) 0 % (0-3) Basophils % (Manual) 0 % (0-2) Band Neutrophils 0 % (0-8) Platelet Estimate Adequate Platelet Morphology Normal Hypochromasia 2+ Anisocytosis 1+ Spherocytes 1+ Prothrombin Time 12.5 SEC (9.30-11.50) H Prothromb Time International Ratio 1.2 (0.9-1.1) H Sodium Level 137 mEQ/L (135-145) Potassium Level 4.1 mEQ/L (3.4-4.9) Chloride Level 99 mEQ/L (98-107) Carbon Dioxide Level 27 mEQ/L (20-30) Anion Gap 11 (5-15) Blood Urea Nitrogen 9 mg/dL (7-23) Creatinine 0.9 mg/dL (0.7-1.2) Estimat Glomerular Filtration Rate mL/min (>60) Glucose Level 107 mg/dL (74-106) H Calcium Level 8.0 mg/dL (8.6-10.2) L Intake and Output 09/17/16 09/18/16 18:59 06:59 Intake Total 1061.500 ml 328.293 ml Output Total 400 ml 800 ml Balance 661.500 ml -471.707 ml Intake Oral 540 ml IV Total 521.500 ml 328.293 ml Output Urine Total 400 ml 800 ml Objective General Appearance: WD/WN, no apparent distress, alert EENT: PERRL/EOMI, normal ENT inspection, TMs normal Neck: non-tender, normal alignment, supple Cardiovascular: normal peripheral pulses, normal rate, regular rhythm, no gallop/murmur, no JVD Respiratory/Chest: chest wall non-tender, lungs clear, normal breath sounds, no respiratory distress, no accessory muscle use Abdomen: normal bowel sounds, non tender, soft, no organomegaly, no mass Extremities: normal range of motion 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 Likely due to hypotension and dehydration. (2) Fall with injury (3) HTN (hypertension) Assessment & Plan: Hypotensive; hold antihypertensive meds. (4) Peripheral neuropathy Assessment & Plan: Cont neurontin. (5) Weakness (6) Hypokalemia Assessment & Plan: Replace potassium. (7) Renal failure Assessment & Plan: See nephrology note. (8) Acute thrombosis of deep vein of lower extremity Assessment & Plan: Continue coumadin per pharmacy protocol. (9) Fever Assessment & Plan: Blood cultures and urine cultures pending. Cont rocephin for now. Status: not improved Assessment/Plan Await [facility] facility placement-see discharge planning note. AMARJIT EDWARDS Sep 18, 2016 10:28
[2016-09-18] MEDS ORDERED: cefTRIAXone 1 GM in D5W 55 ML IVPB SCH (11:00)
[2016-09-18 11:45] VITALS: BP 109/49
--- NOTE | 2016-09-18 14:50 | Pulmonology Progress Note ---
Assessment/Plan Problems: (1) Renal failure (2) DVT (deep venous thrombosis) (3) Acute encephalopathy Assessment/Plan improving med/surg continue heparin pt/ot renal function improving on ABX for UTi dc planning Subjective ROS Limited/Unobtainable: No Interval Events: no new complains, eating well Allergies: Coded Allergies: PENICILLINS (Verified Allergy, Unknown, 07/19/16) Objective Last 24 Hour Vital Signs Date Time Temp Pulse Resp B/P Pulse Ox O2 Delivery O2 Flow Rate FiO2 09/18/16 12:00 82 09/18/16 11:45 98.4 75 18 109/49 95 Room Air 09/18/16 09:05 99.7 09/18/16 08:09 100.2 90 20 122/50 95 Room Air 09/18/16 08:00 97 09/18/16 04:00 99.0 97 18 139/51 99 09/18/16 04:00 80 09/18/16 00:00 98.2 77 18 126/55 99 Room Air 09/18/16 00:00 79 09/17/16 20:00 99.5 76 18 128/60 98 Room Air 09/17/16 20:00 81 09/17/16 16:00 97.7 79 18 115/54 99 Room Air 09/17/16 16:00 91 Intake and Output 09/17/16 09/18/16 19:00 07:00 Intake Total 1061.500 ml 328.293 ml Output Total 400 ml 800 ml Balance 661.500 ml -471.707 ml Intake Oral 540 ml IV Total 521.500 ml 328.293 ml Output Urine Total 400 ml 800 ml General Appearance: WD/WN Respiratory/Chest: chest wall non-tender, lungs clear Cardiovascular: normal peripheral pulses, normal rate Abdomen: normal bowel sounds, soft, non tender Genitourinary: normal external genitalia Skin: no rash, no lesions 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 Lymphatic: no neck adenopathy Musculoskeletal: normal muscle bulk Laboratory Tests 09/17/16 17:30: Activated Partial Thromboplast Time 53H 09/18/16 00:45: Activated Partial Thromboplast Time 58H 09/18/16 07:15: Activated Partial Thromboplast Time 105H, White Blood Count 14.1H, Red Blood Count 3.17L, Hemoglobin 8.9L, Hematocrit 27.7L, Mean Corpuscular Volume 87, Mean Corpuscular Hemoglobin 28.0, Mean Corpuscular Hemoglobin Concent 32.1, Red Cell Distribution Width 15.1H, Platelet Count 396, Mean Platelet Volume 6.2L, Neutrophils (%) (Auto) , Lymphocytes (%) (Auto) , Monocytes (%) (Auto) , Eosinophils (%) (Auto) , Basophils (%) (Auto) , Differential Total Cells Counted 100, Neutrophils % (Manual) 84H, Lymphocytes % (Manual) 10L, Monocytes % (Manual) 6, Eosinophils % (Manual) 0, Basophils % (Manual) 0, Band Neutrophils 0, Platelet Estimate Adequate, Platelet Morphology Normal, Hypochromasia 2+, Anisocytosis 1+, Spherocytes 1+, Prothrombin Time 12.5H, Prothromb Time International Ratio 1.2H, Sodium Level 137, Potassium Level 4.1, Chloride Level 99, Carbon Dioxide Level 27, Anion Gap 11, Blood Urea Nitrogen 9 , Creatinine 0.9, Estimat Glomerular Filtration Rate , Glucose Level 107H, Calcium Level 8.0L Current Medications Medications (Trade) Dose Ordered Sig/[place] Route PRN Reason Start Time Stop Time Status Last Admin Dose Admin Acetaminophen (Tylenol) 650 mg Q6HR PRN ORAL Mild Pain/Temp > 100.5 09/15/16 12:00 10/15/16 11:59 09/18/16 08:04 Ceftriaxone Sodium/Dextrose (Rocephin/D5W) 55 ml @ 110 mls/hr Q24H IVPB 09/18/16 11:00 09/25/16 10:59 09/18/16 11:12 Folic Acid 5 mg 5 mg DAILY ORAL 09/17/16 09:00 10/17/16 08:59 09/18/16 08:04 Gabapentin (Neurontin) 300 mg THREE TIMES A DAY ORAL 09/15/16 13:00 10/15/16 12:59 09/18/16 13:01 Warfarin Sodium (Coumadin per pharmacy) 1 ea DAILY PRN MISC Per rx protocol 09/15/16 14:30 10/15/16 14:29 Warfarin Sodium (Coumadin) 6 mg COUMADIN ONCE ORAL 09/18/16 17:00 09/18/16 17:01 SONIYA GUPTA Sep 18, 2016 14:50
--- NOTE | 2016-09-18 15:50 | Cardiac Electrophysiology PN ---
Assessment/Plan Status Narrative Technically difficult and limited study due to poor apical windows. Apical views obtained from subcostal. Study quality precludes accurate assessment of regional wall motion. Normal left ventricular chamber size, systolic function and wall motion to extent visualized. Left ventricular ejection fraction estimated to be 60 %. Mild left ventricular hypertrophy. No evidence of pericardial fat or effusion. All other cardiac chamber sizes are within normal limits. Mild focal aortic valve sclerosis with adequate cusp excursion. Mildly thickened mitral valve leaflets with normal excursion. Mild mitral annulus and aortic root calcification. Pulmonic valve not well visualized. Normal tricuspid valve structure. IVC at normal size with physiologic collapse. A color flow and spectral Doppler study was performed and revealed: No aortic regurgitation. Mild mitral regurgitation. Mitral diastolic velocities suggest reduced left ventricular relaxation (Grade I ). Mild tricuspid regurgitation. Tricuspid systolic velocities suggests peak right ventricular systolic pressure of 24 mmHg. No pulmonic regurgitation present. Assessment/Plan 1. Status post fall versus syncope. Ruled out for myocardial infarction. Echocardiogram showed Nl EF. Likely due to dehydration. 2. Acute renal failure. Continue dehydration The patient's creatinine was 4.13 at [place] and now 0.9. 3. Elevated CPK due to fall. 4. Hypokalemia, which is already replaced. 5. Bilateral LE DVT. Heparin drip DCed for hematuria. Continue Coumadin per pharmacy. BURTON RN Subjective Subjective On tele.No chest pain or SOB. In SR with PACs. In NAD Objective Last 24 Hour Vital Signs Date Time Temp Pulse Resp B/P Pulse Ox O2 Delivery O2 Flow Rate FiO2 09/18/16 12:00 82 09/18/16 11:45 98.4 75 18 109/49 95 Room Air 09/18/16 09:05 99.7 09/18/16 08:09 100.2 90 20 122/50 95 Room Air 09/18/16 08:00 97 09/18/16 04:00 99.0 97 18 139/51 99 09/18/16 04:00 80 09/18/16 00:00 98.2 77 18 126/55 99 Room Air 09/18/16 00:00 79 09/17/16 20:00 99.5 76 18 128/60 98 Room Air 09/17/16 20:00 81 09/17/16 16:00 97.7 79 18 115/54 99 Room Air 09/17/16 16:00 91 Intake and Output 09/17/16 09/18/16 19:00 07:00 Intake Total 1061.500 ml 328.293 ml Output Total 400 ml 800 ml Balance 661.500 ml -471.707 ml Intake Oral 540 ml IV Total 521.500 ml 328.293 ml Output Urine Total 400 ml 800 ml Laboratory Tests Test 09/17/16 17:30 09/18/16 00:45 09/18/16 07:15 Activated Partial Thromboplast Time 53 SEC (23-33) H 58 SEC (23-33) H 105 SEC (23-33) H White Blood Count 14.1 K/UL (4.8-10.8) H Red Blood Count 3.17 M/UL (4.70-6.10) L Hemoglobin 8.9 G/DL (14.2-18.0) L Hematocrit 27.7 % (42.0-52.0) L Mean Corpuscular Volume 87 FL (80-99) Mean Corpuscular Hemoglobin 28.0 PG (27.0-31.0) Mean Corpuscular Hemoglobin Concent 32.1 G/DL (32.0-36.0) Red Cell Distribution Width 15.1 % (11.6-14.8) H Platelet Count 396 K/UL (150-450) Mean Platelet Volume 6.2 FL (6.5-10.1) L Neutrophils (%) (Auto) % (45.0-75.0) Lymphocytes (%) (Auto) % (20.0-45.0) Monocytes (%) (Auto) % (1.0-10.0) Eosinophils (%) (Auto) % (0.0-3.0) Basophils (%) (Auto) % (0.0-2.0) Differential Total Cells Counted 100 Neutrophils % (Manual) 84 % (45-75) H Lymphocytes % (Manual) 10 % (20-45) L Monocytes % (Manual) 6 % (1-10) Eosinophils % (Manual) 0 % (0-3) Basophils % (Manual) 0 % (0-2) Band Neutrophils 0 % (0-8) Platelet Estimate Adequate Platelet Morphology Normal Hypochromasia 2+ Anisocytosis 1+ Spherocytes 1+ Prothrombin Time 12.5 SEC (9.30-11.50) H Prothromb Time International Ratio 1.2 (0.9-1.1) H Sodium Level 137 mEQ/L (135-145) Potassium Level 4.1 mEQ/L (3.4-4.9) Chloride Level 99 mEQ/L (98-107) Carbon Dioxide Level 27 mEQ/L (20-30) Anion Gap 11 (5-15) Blood Urea Nitrogen 9 mg/dL (7-23) Creatinine 0.9 mg/dL (0.7-1.2) Estimat Glomerular Filtration Rate mL/min (>60) Glucose Level 107 mg/dL (74-106) H Calcium Level 8.0 mg/dL (8.6-10.2) L Objective NECK: Shows no JVD. LUNGS: Clear. CARDIOVASCULAR: Regular S1 and S2 with no gallop or murmur. ABDOMEN: Soft. EXTREMITIES: 2+ pitting edema. ANNA KOEHLER Sep 18, 2016 15:50
[2016-09-18 16:00] VITALS: BP 110/60
[2016-09-18] MEDS ORDERED: Warfarin Sodium 3mg ORAL ONE (17:00)
--- NOTE | 2016-09-18 17:23 | Diagnostic Imaging Report ---
Indication: Abnormal renal function tests, hematuria Technique: Grayscale and duplex images of the kidneys, retroperitoneum, and bladder were obtained. Comparison:09/14/2016 Findings: Right kidney measures 11.6 cm in length. Left kidney measures 10.5 cm in length. Both kidneys demonstrate normal echogenicity. No hydronephrosis. No focal abnormality. Previously described right renal calculi are not visualized currently. Normal inferior vena cava. Bladder is empty, contains a Cassidy catheter. Impression: Negative for hydronephrosis Interim Cassidy catheterization, with decompression of previously demonstrated bladder distention.
[2016-09-18 20:30] VITALS: BP 129/59
[2016-09-19] VITALS: BP 119/53
[2016-09-19 06:59] LABS: INR 1.2 (0.9-1.1); PROTHROMBIN TIME 12.7 SEC (9.30-11.50)
[2016-09-19 07:13] VITALS: BP 121/60
[2016-09-19 07:21] LABS: ALANINE AMINOTRANSFERASE 28 U/L (3-41); ALBUMIN/GLOBULIN RATIO 0.6 (1.0-2.7); ANION GAP 11 (5-15); ASPARTATE AMINO TRANSFERASE 41 U/L (5-40); CALCIUM 7.9 mg/dL (8.6-10.2); CARBON DIOXIDE 27 mEQ/L (20-30); CHLORIDE 99 mEQ/L (98-107); CREATININE 0.8 mg/dL (0.7-1.2); HEMOLYSIS 0; SODIUM 137 mEQ/L (135-145); TOTAL PROTEIN 4.9 g/dL (6.6-8.7)
[2016-09-19 07:28] LABS: MAGNESIUM 1.3 mg/dL (1.7-2.5); PHOSPHORUS 2.9 mg/dL (2.5-4.8)
[2016-09-19 07:38] LABS: BASOPHILS % (AUTO) 1.2 % (0.0-2.0); EOSINOPHILS % (AUTO) 0.6 % (0.0-3.0); LYMPHOCYTES % (AUTO) 13.5 % (20.0-45.0); MEAN CORPUSCULAR HEMOGLOBIN 27.6 PG (27.0-31.0); MEAN CORPUSCULAR HGB CONC 31.5 G/DL (32.0-36.0); MEAN CORPUSCULAR VOLUME 88 FL (80-99); MONOCYTES % (AUTO) 11.7 % (1.0-10.0); NEUTROPHILS % (AUTO) 72.9 % (45.0-75.0); PLATELET COUNT 399 K/UL (150-450); RED BLOOD COUNT 3.17 M/UL (4.70-6.10); RED CELL DISTRIBUTION WIDTH 15.1 % (11.6-14.8); WHITE BLOOD COUNT 7.9 K/UL (4.8-10.8)
[2016-09-19 08:11] VITALS: BP 124/56
[2016-09-19] MEDS: cefTRIAXone 1 GM in D5W 55 ML IVPB SCH (11:03)
--- NOTE | 2016-09-19 12:05 | Diagnostic Imaging Report ---
APPROVED REPORT CPT Code: 28681 Present Symptoms Lower Extremity Edema: Bilateral RIGHT LEG: Venous imaging reveals acute thrombus from the common femoral vein throughout the superficial femoral vein and the popliteal vein. No evidence of thrombus within the tibial segments. Greater saphenous vein also within normal limits. Doppler indicates normal spontaneous flow within the tibial segments. LEFT LEG: Venous imaging reveals acute thrombus in the popliteal vein. Imaging also reveals patency of the common femoral and superficial femoral veins. There is also evidence of thrombus within the upper peroneal vein. There is no evidence of thrombus within the tibial segments. Greater saphenous vein also within normal limits. Doppler indicates normal spontaneous flow within the anterior and posterior tibial segments. ARMANI Belle was notified of abnormal results at 2130 hours.
[2016-09-19 12:37] VITALS: BP 120/60
--- NOTE | 2016-09-19 12:58 | Nephrology Progress Note ---
Assessment/Plan Assessment 1. Acute renal failure. 2. obstructive uropathy. 3. hypomagnesemia . 4. DVT. 5. Rule out PE. 6. History of hypertension. Plan plan to continue current iv replace mg replace electrolyte as need it hold heparin urine culture Subjective Constitutional: Reports: no symptoms HEENT: Reports: no symptoms Genitourinary: Reports: no symptoms Neurologic/Psychiatric: Reports: no symptoms Subjective alert and wake feeling much better hematuria has significantly improved Objective Objective Last 24 Hour Vital Signs Date Time Temp Pulse Resp B/P Pulse Ox O2 Delivery O2 Flow Rate FiO2 09/19/16 12:37 98.0 62 18 120/60 99 Room Air 09/19/16 08:11 99.1 66 18 124/56 98 Room Air 09/19/16 07:13 98.2 84 20 121/60 99 09/19/16 01:48 99.1 09/19/16 00:00 101.7 81 18 119/53 100 Room Air 09/18/16 20:30 100.0 87 16 129/59 98 Room Air 09/18/16 16:00 98.2 80 18 110/60 96 Room Air Intake and Output 09/18/16 09/19/16 18:59 06:59 Intake Total 350 ml Output Total 1300 ml 1250 ml Balance -950 ml -1250 ml Intake Oral 240 ml IV Total 110 ml Output Urine Total 1300 ml 1250 ml Laboratory Tests 09/19/16 05:45: White Blood Count 7.9, Red Blood Count 3.17L, Hemoglobin 8.7L, Hematocrit 27.8L , Mean Corpuscular Volume 88, Mean Corpuscular Hemoglobin 27.6, Mean Corpuscular Hemoglobin Concent 31.5L, Red Cell Distribution Width 15.1H, Platelet Count 399, Mean Platelet Volume 6.0L, Neutrophils (%) (Auto) 72.9, Lymphocytes (%) (Auto) 13.5L, Monocytes (%) (Auto) 11.7H, Eosinophils (%) (Auto ) 0.6, Basophils (%) (Auto) 1.2, Prothrombin Time 12.7H, Prothromb Time International Ratio 1.2H, Activated Partial Thromboplast Time 32, Sodium Level 137, Potassium Level 4.0, Chloride Level 99, Carbon Dioxide Level 27, Anion Gap 11, Blood Urea Nitrogen 8, Creatinine 0.8, Estimat Glomerular Filtration Rate , Glucose Level 86, Calcium Level 7.9L, Phosphorus Level 2.9, Magnesium Level 1.3L , Total Bilirubin 0.3, Aspartate Amino Transf (AST/SGOT) 41H, Alanine Aminotransferase (ALT/SGPT) 28, Alkaline Phosphatase 45, Total Protein 4.9L, Albumin 2.0L, Globulin 2.9, Albumin/Globulin Ratio 0.6L Height (Feet): 5 Height (Inches): 9.00 Weight (Pounds): 218 Objective HEAD AND NECK: No JVP. No LAD. No thyromegaly. Extraocular movements are intact. Pupils are reactive to light and accommodation. LUNGS: Bilateral rhonchi. CARDIAC: Regular rate and rhythm. S1 and S2. No murmur. No rub. ABDOMEN: Soft, nontender, and nondistended. EXTREMITIES: Trace edema. No clubbing. No cyanosis. TATUM ROBERTS Sep 19, 2016 12:57
--- NOTE | 2016-09-19 16:12 | Cardiac Electrophysiology PN ---
Assessment/Plan Status Narrative Technically difficult and limited study due to poor apical windows. Apical views obtained from subcostal. Study quality precludes accurate assessment of regional wall motion. Normal left ventricular chamber size, systolic function and wall motion to extent visualized. Left ventricular ejection fraction estimated to be 60 %. Mild left ventricular hypertrophy. No evidence of pericardial fat or effusion. All other cardiac chamber sizes are within normal limits. Mild focal aortic valve sclerosis with adequate cusp excursion. Mildly thickened mitral valve leaflets with normal excursion. Mild mitral annulus and aortic root calcification. Pulmonic valve not well visualized. Normal tricuspid valve structure. IVC at normal size with physiologic collapse. A color flow and spectral Doppler study was performed and revealed: No aortic regurgitation. Mild mitral regurgitation. Mitral diastolic velocities suggest reduced left ventricular relaxation (Grade I ). Mild tricuspid regurgitation. Tricuspid systolic velocities suggests peak right ventricular systolic pressure of 24 mmHg. No pulmonic regurgitation present. Assessment/Plan 1. Status post fall versus syncope. Ruled out for myocardial infarction. Echocardiogram showed Nl EF. Likely due to dehydration. 2. Acute renal failure. Continue dehydration The patient's creatinine was 4.13 at [place] and now 0.9. 3. Elevated CPK due to fall. 4. Hypokalemia, which is already replaced. 5. Bilateral LE DVT. Heparin drip DCed for hematuria. On Coumadin per pharmacy. 6. Hematuria, Resolved DW RN DC planning to [facility] Subjective Subjective On tele.No chest pain or SOB. Transferred to nonmonitored bed. In NAD. Hematuria resolved. Objective Last 24 Hour Vital Signs Date Time Temp Pulse Resp B/P Pulse Ox O2 Delivery O2 Flow Rate FiO2 09/19/16 12:37 98.0 62 18 120/60 99 Room Air 09/19/16 08:11 99.1 66 18 124/56 98 Room Air 09/19/16 07:13 98.2 84 20 121/60 99 09/19/16 01:48 99.1 09/19/16 00:00 101.7 81 18 119/53 100 Room Air 09/18/16 20:30 100.0 87 16 129/59 98 Room Air Intake and Output 09/18/16 09/19/16 19:00 07:00 Intake Total 350 ml Output Total 1300 ml 1250 ml Balance -950 ml -1250 ml Intake Oral 240 ml IV Total 110 ml Output Urine Total 1300 ml 1250 ml Laboratory Tests Test 09/19/16 05:45 White Blood Count 7.9 K/UL (4.8-10.8) Red Blood Count 3.17 M/UL (4.70-6.10) L Hemoglobin 8.7 G/DL (14.2-18.0) L Hematocrit 27.8 % (42.0-52.0) L Mean Corpuscular Volume 88 FL (80-99) Mean Corpuscular Hemoglobin 27.6 PG (27.0-31.0) Mean Corpuscular Hemoglobin Concent 31.5 G/DL (32.0-36.0) L Red Cell Distribution Width 15.1 % (11.6-14.8) H Platelet Count 399 K/UL (150-450) Mean Platelet Volume 6.0 FL (6.5-10.1) L Neutrophils (%) (Auto) 72.9 % (45.0-75.0) Lymphocytes (%) (Auto) 13.5 % (20.0-45.0) L Monocytes (%) (Auto) 11.7 % (1.0-10.0) H Eosinophils (%) (Auto) 0.6 % (0.0-3.0) Basophils (%) (Auto) 1.2 % (0.0-2.0) Prothrombin Time 12.7 SEC (9.30-11.50) H Prothromb Time International Ratio 1.2 (0.9-1.1) H Activated Partial Thromboplast Time 32 SEC (23-33) Sodium Level 137 mEQ/L (135-145) Potassium Level 4.0 mEQ/L (3.4-4.9) Chloride Level 99 mEQ/L (98-107) Carbon Dioxide Level 27 mEQ/L (20-30) Anion Gap 11 (5-15) Blood Urea Nitrogen 8 mg/dL (7-23) Creatinine 0.8 mg/dL (0.7-1.2) Estimat Glomerular Filtration Rate mL/min (>60) Glucose Level 86 mg/dL (74-106) Calcium Level 7.9 mg/dL (8.6-10.2) L Phosphorus Level 2.9 mg/dL (2.5-4.8) Magnesium Level 1.3 mg/dL (1.7-2.5) L Total Bilirubin 0.3 mg/dL (0.0-1.2) Aspartate Amino Transf (AST/SGOT) 41 U/L (5-40) H Alanine Aminotransferase (ALT/SGPT) 28 U/L (3-41) Alkaline Phosphatase 45 U/L (40-129) Total Protein 4.9 g/dL (6.6-8.7) L Albumin 2.0 g/dL (3.5-5.2) L Globulin 2.9 g/dL Albumin/Globulin Ratio 0.6 (1.0-2.7) L Microbiology Date/Time Source Procedure Growth Status 09/18/16 08:50 Indwelling Cath Urine Culture - Preliminary NO GROWTH Resulted Objective NECK: No JVD. LUNGS: Clear. CARDIOVASCULAR: Regular S1 and S2 with no gallop or murmur. ABDOMEN: Soft. EXTREMITIES: 1+ pitting edema. ANNA KOEHLER Sep 19, 2016 16:12
[2016-09-19 16:19] VITALS: BP 121/56
[2016-09-19] MEDS ORDERED: Warfarin Sodium 7.5mg ORAL ONE (17:00)
--- NOTE | 2016-09-19 18:28 | Internal Med Progress Note ---
Subjective Date of Service: Sep 19, 2016 Physician Name Amarjit Edwards Attending Physician Esa Naqvi MD Current Medications Medications (Trade) Dose Ordered Sig/Roosevelt Route PRN Reason Start Time Stop Time Status Last Admin Dose Admin Acetaminophen (Tylenol) 650 mg Q6H PRN ORAL Mild Pain/Temp > 100.5 09/19/16 00:00 10/19/16 00:00 09/19/16 00:49 Ceftriaxone Sodium/Dextrose (Rocephin/D5W) 55 ml @ 110 mls/hr Q24H IVPB 09/19/16 11:00 09/26/16 10:59 09/19/16 11:03 Folic Acid (Folate) 5 mg DAILY ORAL 09/19/16 09:00 10/19/16 08:59 09/19/16 08:23 Gabapentin (Neurontin) 300 mg THREE TIMES A DAY ORAL 09/19/16 09:00 10/19/16 08:59 09/19/16 17:51 Warfarin Sodium (Coumadin per pharmacy) 1 ea DAILY PRN MISC Per rx protocol 09/18/16 21:00 10/18/16 20:59 Allergies: Coded Allergies: PENICILLINS (Verified Allergy, Unknown, 07/19/16) ROS Limited/Unobtainable: No Constitutional: Reports: no symptoms HEENT: Reports: no symptoms Cardiovascular: Reports: no symptoms Respiratory: Reports: no symptoms Gastrointestinal/Abdominal: Reports: no symptoms Genitourinary: Reports: no symptoms Neurologic/Psychiatric: Reports: no symptoms Subjective 81 YO M admitted with gen weakness and fall injury/syncope. Cover for Int Med- Dr Naqvi. Await care home fac placement. Objective Last Vital Signs Date Time Temp Pulse Resp B/P Pulse Ox O2 Delivery O2 Flow Rate FiO2 09/19/16 16:19 99.7 79 19 121/56 98 Room Air 09/15/16 08:35 2.0 Laboratory Tests Test 09/19/16 05:45 White Blood Count 7.9 K/UL (4.8-10.8) Red Blood Count 3.17 M/UL (4.70-6.10) L Hemoglobin 8.7 G/DL (14.2-18.0) L Hematocrit 27.8 % (42.0-52.0) L Mean Corpuscular Volume 88 FL (80-99) Mean Corpuscular Hemoglobin 27.6 PG (27.0-31.0) Mean Corpuscular Hemoglobin Concent 31.5 G/DL (32.0-36.0) L Red Cell Distribution Width 15.1 % (11.6-14.8) H Platelet Count 399 K/UL (150-450) Mean Platelet Volume 6.0 FL (6.5-10.1) L Neutrophils (%) (Auto) 72.9 % (45.0-75.0) Lymphocytes (%) (Auto) 13.5 % (20.0-45.0) L Monocytes (%) (Auto) 11.7 % (1.0-10.0) H Eosinophils (%) (Auto) 0.6 % (0.0-3.0) Basophils (%) (Auto) 1.2 % (0.0-2.0) Prothrombin Time 12.7 SEC (9.30-11.50) H Prothromb Time International Ratio 1.2 (0.9-1.1) H Activated Partial Thromboplast Time 32 SEC (23-33) Sodium Level 137 mEQ/L (135-145) Potassium Level 4.0 mEQ/L (3.4-4.9) Chloride Level 99 mEQ/L (98-107) Carbon Dioxide Level 27 mEQ/L (20-30) Anion Gap 11 (5-15) Blood Urea Nitrogen 8 mg/dL (7-23) Creatinine 0.8 mg/dL (0.7-1.2) Estimat Glomerular Filtration Rate mL/min (>60) Glucose Level 86 mg/dL (74-106) Calcium Level 7.9 mg/dL (8.6-10.2) L Phosphorus Level 2.9 mg/dL (2.5-4.8) Magnesium Level 1.3 mg/dL (1.7-2.5) L Total Bilirubin 0.3 mg/dL (0.0-1.2) Aspartate Amino Transf (AST/SGOT) 41 U/L (5-40) H Alanine Aminotransferase (ALT/SGPT) 28 U/L (3-41) Alkaline Phosphatase 45 U/L (40-129) Total Protein 4.9 g/dL (6.6-8.7) L Albumin 2.0 g/dL (3.5-5.2) L Globulin 2.9 g/dL Albumin/Globulin Ratio 0.6 (1.0-2.7) L Microbiology Date/Time Source Procedure Growth Status 09/18/16 08:50 Indwelling Cath Urine Culture - Preliminary NO GROWTH Resulted Intake and Output 09/18/16 09/19/16 19:00 07:00 Intake Total 350 ml Output Total 1300 ml 1250 ml Balance -950 ml -1250 ml Intake Oral 240 ml IV Total 110 ml Output Urine Total 1300 ml 1250 ml Objective General Appearance: WD/WN, no apparent distress, alert EENT: PERRL/EOMI, normal ENT inspection, TMs normal Neck: non-tender, normal alignment, supple Cardiovascular: normal peripheral pulses, normal rate, regular rhythm, no gallop/murmur, no JVD Respiratory/Chest: chest wall non-tender, lungs clear, normal breath sounds, no respiratory distress, no accessory muscle use Abdomen: normal bowel sounds, non tender, soft, no organomegaly, no mass Extremities: normal range of motion 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 See cardiology and neurology note. (2) Fall with injury (3) HTN (hypertension) Assessment & Plan: Hypotensive; hold antihypertensive meds. (4) Peripheral neuropathy Assessment & Plan: Cont neurontin. (5) Weakness (6) Hypokalemia Assessment & Plan: Replace potassium. (7) Renal failure Assessment & Plan: See nephrology note. (8) Acute thrombosis of deep vein of lower extremity Assessment & Plan: Continue coumadin per pharmacy protocol. (9) Fever Assessment & Plan: Cont rocephin for now. (10) Hematuria Assessment & Plan: Renal ultrasound normal; urine culture = no growth Assessment/Plan Await [facility] facility placement-see discharge planning note. AMARJIT EDWARDS Sep 19, 2016 18:28
[2016-09-19] MEDS ORDERED: Tubing IV Secondary IV ONE (18:42)
[2016-09-19] MEDS ORDERED: NS 275ml ONE (18:42)
[2016-09-19] MEDS ORDERED: D5 1/2NS 1000ml IV ONE (18:42)
[2016-09-19 20:00] VITALS: BP 117/54
--- NOTE | 2016-09-19 22:59 | Pulmonology Progress Note ---
Assessment/Plan Problems: (1) Renal failure (2) DVT (deep venous thrombosis) (3) Acute encephalopathy Assessment/Plan improving med/surg continue heparin pt/ot renal function improving on ABX for UTi dc planning Subjective ROS Limited/Unobtainable: No Constitutional: Reports: anorexia, chills, fatigue, fever Genitourinary: Reports: dysuria, frequency, hematuria, nocturia, urgency Skin: Reports: rash, ulcer Allergies: Coded Allergies: PENICILLINS (Verified Allergy, Unknown, 07/19/16) Objective Last 24 Hour Vital Signs Date Time Temp Pulse Resp B/P Pulse Ox O2 Delivery O2 Flow Rate FiO2 09/19/16 20:00 98.4 75 18 117/54 98 Room Air 09/19/16 16:19 99.7 79 19 121/56 98 Room Air 09/19/16 12:37 98.0 62 18 120/60 99 Room Air 09/19/16 08:11 99.1 66 18 124/56 98 Room Air 09/19/16 07:13 98.2 84 20 121/60 99 09/19/16 01:48 99.1 09/19/16 00:00 101.7 81 18 119/53 100 Room Air Intake and Output 09/18/16 09/19/16 19:00 07:00 Intake Total 350 ml Output Total 1300 ml 1250 ml Balance -950 ml -1250 ml Intake Oral 240 ml IV Total 110 ml Output Urine Total 1300 ml 1250 ml General Appearance: no acute distress HEENT: normocephalic, atraumatic, PERRL Respiratory/Chest: chest wall non-tender, lungs clear, decreased breath sounds Cardiovascular: normal peripheral pulses, normal rate, regular rhythm Abdomen: normal bowel sounds, soft, non tender, no organomegaly Genitourinary: normal external genitalia Extremities: no cyanosis Skin: rash, lesions Neurologic/Psychiatric: frame expander II-XII grossly normal, no motor/sensory deficits Microbiology Date/Time Source Procedure Growth Status 09/18/16 08:50 Indwelling Cath Urine Culture - Preliminary NO GROWTH Resulted Laboratory Tests 09/19/16 05:45: White Blood Count 7.9, Red Blood Count 3.17L, Hemoglobin 8.7L, Hematocrit 27.8L , Mean Corpuscular Volume 88, Mean Corpuscular Hemoglobin 27.6, Mean Corpuscular Hemoglobin Concent 31.5L, Red Cell Distribution Width 15.1H, Platelet Count 399, Mean Platelet Volume 6.0L, Neutrophils (%) (Auto) 72.9, Lymphocytes (%) (Auto) 13.5L, Monocytes (%) (Auto) 11.7H, Eosinophils (%) (Auto ) 0.6, Basophils (%) (Auto) 1.2, Prothrombin Time 12.7H, Prothromb Time International Ratio 1.2H, Activated Partial Thromboplast Time 32, Sodium Level 137, Potassium Level 4.0, Chloride Level 99, Carbon Dioxide Level 27, Anion Gap 11, Blood Urea Nitrogen 8, Creatinine 0.8, Estimat Glomerular Filtration Rate , Glucose Level 86, Calcium Level 7.9L, Phosphorus Level 2.9, Magnesium Level 1.3L , Total Bilirubin 0.3, Aspartate Amino Transf (AST/SGOT) 41H, Alanine Aminotransferase (ALT/SGPT) 28, Alkaline Phosphatase 45, Total Protein 4.9L, Albumin 2.0L, Globulin 2.9, Albumin/Globulin Ratio 0.6L Current Medications Medications (Trade) Dose Ordered Sig/[place] Route PRN Reason Start Time Stop Time Status Last Admin Dose Admin Acetaminophen (Tylenol) 650 mg Q6H PRN ORAL Mild Pain/Temp > 100.5 09/19/16 00:00 10/19/16 00:00 09/19/16 00:49 Ceftriaxone Sodium/Dextrose (Rocephin/D5W) 55 ml @ 110 mls/hr Q24H IVPB 09/19/16 11:00 09/26/16 10:59 09/19/16 11:03 Folic Acid (Folate) 5 mg DAILY ORAL 09/19/16 09:00 10/19/16 08:59 09/19/16 08:23 Gabapentin (Neurontin) 300 mg THREE TIMES A DAY ORAL 09/19/16 09:00 10/19/16 08:59 09/19/16 17:51 Warfarin Sodium (Coumadin per pharmacy) 1 ea DAILY PRN MISC Per rx protocol 09/18/16 21:00 10/18/16 20:59 SONIYA GUPTA Sep 19, 2016 22:59
[2016-09-20] VITALS: BP 132/62
[2016-09-20 04:00] VITALS: BP 132/58
[2016-09-20 07:33] LABS: BASOPHILS % (AUTO) 1.6 % (0.0-2.0); EOSINOPHILS % (AUTO) 1.9 % (0.0-3.0); MEAN CORPUSCULAR HEMOGLOBIN 28.1 PG (27.0-31.0); MEAN CORPUSCULAR HGB CONC 32.2 G/DL (32.0-36.0); MEAN CORPUSCULAR VOLUME 87 FL (80-99); MONOCYTES % (AUTO) 15.8 % (1.0-10.0); NEUTROPHILS % (AUTO) 66.8 % (45.0-75.0); PLATELET COUNT 431 K/UL (150-450); RED BLOOD COUNT 3.32 M/UL (4.70-6.10); RED CELL DISTRIBUTION WIDTH 15.1 % (11.6-14.8); WHITE BLOOD COUNT 7.3 K/UL (4.8-10.8)
[2016-09-20 07:52] LABS: ANION GAP 11 (5-15); CALCIUM 8.4 mg/dL (8.6-10.2); CARBON DIOXIDE 27 mEQ/L (20-30); CHLORIDE 98 mEQ/L (98-107); CREATININE 0.8 mg/dL (0.7-1.2); HEMOLYSIS 7; POTASSIUM 4.1 mEQ/L (3.4-4.9); SODIUM 136 mEQ/L (135-145)
[2016-09-20 08:07] LABS: INR 1.4 (0.9-1.1); PROTHROMBIN TIME 14.3 SEC (9.30-11.50)
[2016-09-20 08:47] VITALS: BP 117/48
[2016-09-20] MEDS: cefTRIAXone 1 GM in D5W 55 ML IVPB SCH (11:06)
[2016-09-20 12:00] VITALS: BP 123/76
--- NOTE | 2016-09-20 13:25 | Internal Med Progress Note ---
Subjective Date of Service: Sep 20, 2016 Physician Name Amarjit Edwards Attending Physician Esa Naqvi MD Current Medications Medications (Trade) Dose Ordered Sig/Ro[place] Route PRN Reason Start Time Stop Time Status Last Admin Dose Admin Acetaminophen (Tylenol) 650 mg Q6H PRN ORAL Mild Pain/Temp > 100.5 09/19/16 00:00 10/19/16 00:00 09/19/16 00:49 Ceftriaxone Sodium/Dextrose (Rocephin/D5W) 55 ml @ 110 mls/hr Q24H IVPB 09/19/16 11:00 09/26/16 10:59 09/20/16 11:06 Folic Acid (Folate) 5 mg DAILY ORAL 09/19/16 09:00 10/19/16 08:59 09/20/16 08:35 Gabapentin (Neurontin) 300 mg THREE TIMES A DAY ORAL 09/19/16 09:00 10/19/16 08:59 09/20/16 13:19 Warfarin Sodium (Coumadin per pharmacy) 1 ea DAILY PRN MISC Per rx protocol 09/18/16 21:00 10/18/16 20:59 Warfarin Sodium (Coumadin) 7.5 mg COUMADIN ONCE ORAL 09/20/16 17:00 09/20/16 17:01 Allergies: Coded Allergies: PENICILLINS (Verified Allergy, Unknown, 07/19/16) ROS Limited/Unobtainable: No Constitutional: Reports: no symptoms HEENT: Reports: no symptoms Cardiovascular: Reports: no symptoms Respiratory: Reports: no symptoms Gastrointestinal/Abdominal: Reports: no symptoms Neurologic/Psychiatric: Reports: no symptoms Subjective 81 YO M admitted with gen weakness and fall injury/syncope. Cover for Int Med- Dr Naqvi. Hematuria improved. Await long term fac placement. Objective Last Vital Signs Date Time Temp Pulse Resp B/P Pulse Ox O2 Delivery O2 Flow Rate FiO2 09/20/16 12:00 98.4 72 18 123/76 97 Room Air 09/15/16 08:35 2.0 Laboratory Tests Test 09/20/16 07:02 White Blood Count 7.3 K/UL (4.8-10.8) Red Blood Count 3.32 M/UL (4.70-6.10) L Hemoglobin 9.3 G/DL (14.2-18.0) L Hematocrit 29.0 % (42.0-52.0) L Mean Corpuscular Volume 87 FL (80-99) Mean Corpuscular Hemoglobin 28.1 PG (27.0-31.0) Mean Corpuscular Hemoglobin Concent 32.2 G/DL (32.0-36.0) Red Cell Distribution Width 15.1 % (11.6-14.8) H Platelet Count 431 K/UL (150-450) Mean Platelet Volume 6.0 FL (6.5-10.1) L Neutrophils (%) (Auto) 66.8 % (45.0-75.0) Lymphocytes (%) (Auto) 14.0 % (20.0-45.0) L Monocytes (%) (Auto) 15.8 % (1.0-10.0) H Eosinophils (%) (Auto) 1.9 % (0.0-3.0) Basophils (%) (Auto) 1.6 % (0.0-2.0) Prothrombin Time 14.3 SEC (9.30-11.50) H Prothromb Time International Ratio 1.4 (0.9-1.1) H Sodium Level 136 mEQ/L (135-145) Potassium Level 4.1 mEQ/L (3.4-4.9) Chloride Level 98 mEQ/L (98-107) Carbon Dioxide Level 27 mEQ/L (20-30) Anion Gap 11 (5-15) Blood Urea Nitrogen 8 mg/dL (7-23) Creatinine 0.8 mg/dL (0.7-1.2) Estimat Glomerular Filtration Rate mL/min (>60) Glucose Level 88 mg/dL (74-106) Calcium Level 8.4 mg/dL (8.6-10.2) L Microbiology Date/Time Source Procedure Growth Status 09/18/16 08:54 Blood Blood Culture - Preliminary NO GROWTH AFTER 24 HOURS Resulted 09/18/16 08:50 Indwelling Cath Urine Culture - Preliminary NO GROWTH AFTER 24 HOURS Resulted Intake and Output 09/19/16 09/20/16 19:00 07:00 Intake Total 480 ml 1040 ml Output Total 400 ml 1700 ml Balance 80 ml -660 ml Intake Oral 480 ml 1040 ml Output Urine Total 400 ml 1700 ml Objective General Appearance: WD/WN, no apparent distress, alert EENT: PERRL/EOMI, normal ENT inspection, TMs normal Neck: non-tender, normal alignment, supple Cardiovascular: normal peripheral pulses, normal rate, regular rhythm, no gallop/murmur, no JVD Respiratory/Chest: chest wall non-tender, lungs clear, normal breath sounds, no respiratory distress, no accessory muscle use Abdomen: normal bowel sounds, non tender, soft, no organomegaly, no mass Extremities: normal range of motion Neurologic: 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 See cardiology and neurology note. (2) Fall with injury (3) HTN (hypertension) Assessment & Plan: Hypotensive; hold antihypertensive meds. (4) Peripheral neuropathy Assessment & Plan: Cont neurontin. (5) Weakness (6) Hypokalemia Assessment & Plan: Replace potassium. (7) Renal failure Assessment & Plan: See nephrology note. (8) Acute thrombosis of deep vein of lower extremity Assessment & Plan: Continue coumadin per pharmacy protocol. (9) Fever Assessment & Plan: Cont rocephin for now. (10) Hematuria Assessment & Plan: Renal ultrasound normal; urine culture = no growth Status: stable Assessment/Plan Await [facility] SNF placement-see discharge planning note. AMARJIT EDWARDS Sep 20, 2016 13:25
[2016-09-20] MEDS ORDERED: COUMADIN7.5 MG ORAL (14:43)
[2016-09-20 16:00] VITALS: BP 134/58
[2016-09-20] MEDS ORDERED: NS 275ml ONE (16:29)
[2016-09-20] MEDS ORDERED: Tubing IV Secondary IV ONE (16:29)
[2016-09-20] MEDS ORDERED: Warfarin Sodium 7.5mg ORAL ONE (17:00)
--- NOTE | 2016-09-20 18:34 | Nephrology Progress Note ---
Assessment/Plan Assessment 1. Acute renal failure. 2. obstructive uropathy. 3. hypomagnesemia . 4. DVT. 5. Rule out PE. 6. History of hypertension. Plan plan to continue current iv replace mg replace electrolyte as need it hold heparin monitoring electrolyte Subjective Constitutional: Reports: no symptoms HEENT: Reports: no symptoms Genitourinary: Reports: no symptoms Neurologic/Psychiatric: Reports: no symptoms Subjective alert and wake feeling much better hematuria has resolved no fever Objective Objective Last 24 Hour Vital Signs Date Time Temp Pulse Resp B/P Pulse Ox O2 Delivery O2 Flow Rate FiO2 09/20/16 16:00 98.2 72 18 134/58 100 Room Air 09/20/16 12:00 98.4 72 18 123/76 97 Room Air 09/20/16 08:47 98.2 71 20 117/48 97 Room Air 09/20/16 04:00 98.1 71 18 132/58 94 Room Air 09/20/16 00:00 99.1 75 18 132/62 98 Room Air 09/19/16 20:00 98.4 75 18 117/54 98 Room Air Intake and Output 09/19/16 09/20/16 19:00 07:00 Intake Total 480 ml 1040 ml Output Total 400 ml 1700 ml Balance 80 ml -660 ml Intake Oral 480 ml 1040 ml Output Urine Total 400 ml 1700 ml Laboratory Tests 09/20/16 07:02: White Blood Count 7.3, Red Blood Count 3.32L, Hemoglobin 9.3L, Hematocrit 29.0L , Mean Corpuscular Volume 87, Mean Corpuscular Hemoglobin 28.1, Mean Corpuscular Hemoglobin Concent 32.2, Red Cell Distribution Width 15.1H, Platelet Count 431, Mean Platelet Volume 6.0L, Neutrophils (%) (Auto) 66.8, Lymphocytes (%) (Auto) 14.0L, Monocytes (%) (Auto) 15.8H, Eosinophils (%) (Auto ) 1.9, Basophils (%) (Auto) 1.6, Prothrombin Time 14.3H, Prothromb Time International Ratio 1.4H, Sodium Level 136, Potassium Level 4.1, Chloride Level 98, Carbon Dioxide Level 27, Anion Gap 11, Blood Urea Nitrogen 8, Creatinine 0.8 , Estimat Glomerular Filtration Rate , Glucose Level 88, Calcium Level 8.4L Height (Feet): 5 Height (Inches): 9.00 Weight (Pounds): 218 Objective HEAD AND NECK: No JVP. No LAD. No thyromegaly. Extraocular movements are intact. Pupils are reactive to light and accommodation. LUNGS: Bilateral rhonchi. CARDIAC: Regular rate and rhythm. S1 and S2. No murmur. No rub. ABDOMEN: Soft, nontender, and nondistended. EXTREMITIES: Trace edema. No clubbing. No cyanosis. TATUM ROBERTS Sep 20, 2016 18:34
--- NOTE | 2016-09-22 14:48 | Discharge Summary ---
Discharge Summary Hospital Course Date of Admission Sep 13, 2016 at 23:15 Date of Discharge Sep 20, 2016 at 16:30 Admitting Diagnosis HPI Kris Avila is a 81 year old male who was admitted on Sep 13, 2016 at 23:15 for Acute Renal Failure Hospital Course [id number] Discharge Discharge Disposition Patient was discharged to SNF/Subacute Facility(03) Discharge Diagnoses: Elizabeth Davis NP Sep 22, 2016 14:48
--- NOTE | 2016-09-22 23:19 | Discharge Summary 2 SIG ---
DATE OF ADMISSION: 09/13/2016 DATE OF DISCHARGE: 09/20/2016 CONSULTANTS: 1. Ishan Goode M.D. 2. Rob Mejia M.D. 3. Jessica Ni M.D. BRIEF HOSPITAL COURSE: The patient is an 81-year-old male, who came in complaining of generalized weakness with fall and injury. The patient lives alone. The patient fell from his wheelchair and was found the following day by the daughter. He initially presented to [facility] and on evaluation, was found to have acute renal failure and was transferred to [facility] for further workup. Nephrology consultation was done. The etiology of acute renal failure is acute tubular necrosis due to hypotension and unstable hemodynamics. He had a venous duplex of lower extremity, which showed acute DVT on the right and left lower extremity and was started on heparin drip and Coumadin. Potassium was repleted. Renal ultrasound showed normal bilateral kidney echogenicity. Echocardiogram showed ejection fraction of 60%, although technically difficult and limited due to poor apical window. Syncopal episode likely due to dehydration. He was ruled out for myocardial infarction. Elevated CPK was secondary to fall. He underwent physical and occupational therapy and was subsequently transferred to a long term. FINAL DIAGNOSES: 1. Syncope likely due to hypotension and dehydration. 2. Fall with injury. 3. Hypertension with episodes of hypotension. 4. Peripheral neuropathy. 5. Acute renal failure secondary to acute tubular necrosis. 6. Hypokalemia. 7. Acute deep venous thrombosis of bilateral lower extremity. 8. Hematuria. 9. Obstructive uropathy. 10. Hypomagnesemia. 11. Acute toxic metabolic encephalopathy. 12. Anemia of folate deficiency. 13. Elevated creatinine kinase/rhabdomyolysis secondary to fall. Amarjit Gar M.D. I have been assigned to dictate discharge summary on this account and I was not involved in the patient's management. Elizabeth Davis N.P. DR: KELSIE JOB#: [id number] CC: JAVIER
== END 2016-09-20 16:30 | DRG 682 ==
LOC: 4W 23:15 → 2E 09-15 10:27 → 3E 09-18 20:30
DX: N17.0 Acute kidney failure with tubular necrosis (principal); G92 Toxic encephalopathy; I82.403 Acute embolism and thrombosis of unspecified deep veins of lower extremity, bilateral; I95.9 Hypotension, unspecified; G62.9 Polyneuropathy, unspecified; N13.9 Obstructive and reflux uropathy, unspecified; D52.9 Folate deficiency anemia, unspecified; I82.491 Acute embolism and thrombosis of other specified deep vein of right lower extremity; E86.0 Dehydration; R55 Syncope and collapse; I10 Essential (primary) hypertension; E87.6 Hypokalemia; Z88.0 Allergy status to penicillin; Z60.2 Problems related to living alone; E83.42 Hypomagnesemia; I34.0 Nonrheumatic mitral (valve) insufficiency; T14.90 Injury, unspecified; W05.0XXA Fall from non-moving wheelchair, initial encounter; Y92.009 Unspecified place in unspecified non-institutional (private) residence as the place of occurrence of the external cause
CPT/HCPCS: 36415; 71010; 76775; 80048; 80053; 82378; 82533; 82550; 82607; 82746; 83540; 83550; 83615; 83735; 83880; 83930; 84100; 84439; 84443; 84481; 84484; 84550; 85007; 85025; 85044; 85060; 85610; 85651; 85730; 87040; 87086; 93005; 93306; 93970; J8499